=== PATIENT | male | born 1960 | race Caucasian/White ===

== ENCOUNTER 2016-11-25 16:23 | Inpatient (IN) | payer OTHER ==
[~2016-11-25] VITALS: Ht 185.4 cm; Wt 125.5 kg
[~2016-11-25 16:23] MED LIST: CLOP75TA19 PO; FAMO-137 PO; FENO160T9 PO; FLUO40CA40 PO; GABA-215 PO; GLIP5TAB11 PO; HYDR-4246 PO; IBUP-1547 PO; LISI30TA36 PO; ONDA4TAB7 PO; SAXA1TBM2 PO
--- OUTSIDE RECORDS SUMMARY | 2016-11-25 16:27 | XMS REPORT | Referral Summary ---
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 Discharge Diagnosis: Benign essential hypertension (disorder) Discharge Disposition: 01-Home or Self Care Attending Physician: Herrera Martinez MD Admitting Physician: Herrera Martinez MD Vital Signs Most recent to 1 oldest [Reference Range]: Blood Pressure 154/94 mmHg [90-140/60-90 mmHg] *HI* (07/31/16 2:27 PM) Problem List Condition Effective Dates Status Health Status Informant Active Active smoker(Confirmed) Benign essential Resolved hypertension (disorder)(Confirmed ) Benign Active hypertension(Confirm ed) BPH with urinary Active obstruction(Confirme d) CAD (coronary < 04/12/14 Resolved atherosclerotic disease)(Confirmed)1 Recurrent Active carbuncles(Confirmed )2 DM complicaitons - 2009 Active microalbuminuria, neuropathy, PVD(Confirmed) Coronary Active arteriosclerosis (disorder)(Confirmed ) Depression(Confirmed Active ) Diabetes, type 2 w/ Active perf circ disc(Confirmed)3 Diabetes, type 2, Active with neuro manif(Confirmed)4 Diabetes, type 2, Active with renal manifestations(Confi rmed)5 Diabetic renal Active disease (disorder)(Confirmed ) Mixed Active dyslipidemia(Confirm ed) Excessive weight Active gain(Confirmed) GERD(Confirmed) Active Hepatitis C carrier Resolved (finding)(Confirmed) Hepatitis C Active carrier(Confirmed) Hyperlipidemia(Confi < 04/12/14 Resolved rmed) PHx IVDA(Confirmed)6 Active Irritable bowel Active disease(Confirmed) Mixed hyperlipidemia Resolved (disorder)(Confirmed ) Obesity(Confirmed) Active Osteoarthritis(Confi Active rmed) Patient post Active percutaneous transluminal coronary angioplasty (finding)(Confirmed) Peripheral Active circulatory disorder associated with diabetes mellitus (disorder)(Confirmed ) Shoulder Active pain(Confirmed) Sleep Active apnea(Confirmed)7 Stented coronary Active artery(Confirmed) 1See NextGen. 2See conversion document. 3see NextGen. 4see NextGen. 5see NextGen. 6ages 20-23. See NextGen. 7on CPAP. See conversion document. Allergies, Adverse Reactions, Alerts Substance Reaction Severity Status lovastatin myalgias Active niacin severe flushing Active sulfamethoxazole Active Medications amoxicillin 875 mg oral tablet 875 mg 1 tabs, Oral, BID, X 10 days, # 20 tabs, 1 Refill(s), Pharmacy: [facility] #[id number], 1 tabs Oral BID,x10 days Start Date: 07/31/16 Stop Date: 08/20/16 Status: Ordered clopidogrel 75 mg oral tablet See Instructions, TAKE ONE TABLET BY MOUTH DAILY, # 90 tabs, eRx: [facility] #[id number], TAKE ONE TABLET BY MOUTH DAILY Start Date: 07/17/16 Status: Ordered FLUoxetine 40 mg oral capsule See Instructions, TAKE ONE CAPSULE BY MOUTH DAILY, # 90 caps, 1 Refill(s), eRx: [facility] #[id number], TAKE ONE CAPSULE BY MOUTH DAILY Start Date: 06/12/16 Status: Ordered gabapentin 300 mg oral capsule See Instructions, TAKE ONE CAPSULE BY MOUTH THREE TIMES A DAY, # 270 caps, 3 Refill(s), Pharmacy: [facility] #[id number], TAKE ONE CAPSULE BY MOUTH THREE TIMES A DAY Start Date: 08/17/15 Status: Ordered indomethacin 50 mg oral capsule See Instructions, TAKE ONE CAPSULE BY MOUTH TWICE A DAY, # 180 caps, 1 Refill(s) , Pharmacy: [facility] #[id number], TAKE ONE CAPSULE BY MOUTH TWICE A DAY Start Date: 07/31/16 Status: Ordered Kombiglyze XR 2.5 mg-1000 mg oral tablet, extended release See Instructions, TAKE ONE TABLET BY MOUTH EVERY EVENING, # 90 tabs, 0 Refill(s) , Pharmacy: [facility] #[id number] Start Date: 04/10/16 Status: Ordered lisinopril 30 mg oral tablet See Instructions, TAKE TWO TABLETS BY MOUTH DAILY, # 90 tabs, 1 Refill(s), Pharmacy: [facility] #[id number] Start Date: 05/18/16 Status: Ordered Miscellaneous DME DME Item One touch Ultra Blue test strips Use to test blood sugar 3x daily DX : E11.21, See Instructions, # 2 boxes, 3 Refill(s), Pharmacy: [facility] # [id number], One touch Ultra Blue test strips; Use to test blood sugar 3x daily; DX: E11.21, Supply Start Date: 10/11/15 Status: Ordered omeprazole 20 mg oral delayed release tablet mg tabs, Oral, Daily, 0 Refill(s) Start Date: 02/14/15 Status: Ordered Percocet 7.5/325 oral tablet 1 tabs, Oral, TID, Must last 30 days. May fill 07/18/16, # 90 tabs, 0 Refill(s) Start Date: 07/18/16 Status: Ordered simvastatin 20 mg oral tablet See Instructions, TAKE ONE TABLET EVERY SATURDAY, SATURDAY AND SATURDAY, # 39 tabs , 1 Refill(s), Pharmacy: [facility] #[id number], TAKE ONE TABLET EVERY SATURDAY , SATURDAY AND SATURDAY Start Date: 07/31/16 Status: Ordered tamsulosin 0.4 mg oral capsule 0.4 mg 1 caps, Oral, Daily, # 90 caps, 1 Refill(s), Pharmacy: [facility] # [id number], 1 caps Oral Daily Start Date: 05/27/15 Status: Ordered Results Hematology Most recent to 1 oldest [Reference Range]: WBC [4.8-10.8 7.1 10*3/uL 10*3/uL] (07/31/16 2:55 PM) RBC [4.60-6.20] 4.19 *LOW* (07/31/16 2:55 PM) Hgb [14.0-18.0 12.5 gm/dL gm/dL] *LOW* (07/31/16 2:55 PM) Hct [42.0-52.0 %] 36.3 % *LOW* (07/31/16 2:55 PM) MCV [82.0-99.0 fL] 86.6 fL (07/31/16 2:55 PM) MCH [27.0-32.0 pg] 29.8 pg (07/31/16 2:55 PM) MCHC [32.0-36.0 34.4 gm/dL gm/dL] (07/31/16 2:55 PM) RDW [11.5-14.5 %] 12.3 % (07/31/16 2:55 PM) Platelet [150-400 211 10*3/uL 10*3/uL] (07/31/16 2:55 PM) MPV [8.8-14.8 fL] 10.9 fL (07/31/16 2:55 PM) Immature 0.6 % Granulocytes (07/31/16 2:55 PM) [0.0-1.0 %] Neutrophils [51-75 67 % %] (07/31/16 2:55 PM) Lymphocytes [20-46 24 % %] (07/31/16 2:55 PM) Monocytes [4-11 %] 6 % (07/31/16 2:55 PM) Eosinophils [0-4 %] 1 % (07/31/16 2:55 PM) Basophils [0-2 %] 0 % (07/31/16 2:55 PM) Neutro Absolute 4.80 [1.90-7.00] (07/31/16 2:55 PM) Lymph Absolute 1.73 [0.80-3.30] (07/31/16 2:55 PM) [place] Absolute 0.45 [0.30-1.00] (07/31/16 2:55 PM) Eos Absolute 0.10 [0.00-0.50] (07/31/16 2:55 PM) Baso Absolute 0.02 [0.00-0.20] (07/31/16 2:55 PM) Chemistry Most recent to 1 oldest [Reference Range]: Sodium Lvl [135-144 136 mEq/L mEq/L] (07/31/16 2:55 PM) Potassium Lvl 4.3 mEq/L [3.5-5.2 mEq/L] (07/31/16 2:55 PM) Chloride [99-111 101 mEq/L mEq/L] (07/31/16 2:55 PM) CO2 [23-31 mEq/L] 26 mEq/L (07/31/16 2:55 PM) AGAP [3-20] 9 (07/31/16 2:55 PM) BUN [8-26 mg/dL] 14 mg/dL (07/31/16 2:55 PM) Glucose Lvl [70-99 170 mg/dL mg/dL] *HI* (07/31/16 2:55 PM) Creatinine Lvl 0.90 mg/dL [0.72-1.25 mg/dL] (07/31/16 2:55 PM) eGFR [>60 mL/min] >60 mL/min 1 (07/31/16 2:55 PM) Calcium Lvl 9.4 mg/dL [8.9-10.5 mg/dL] (07/31/16 2:55 PM) PSA (wihout Reflex 2.8 ng/mL 2 Free) [0.0-3.5 (07/31/16 2:55 PM) ng/mL] Hgb A1c [4.1-5.6 %] 6.6 % *HI* (07/31/16 2:55 PM) eAvg Glucose 142.7 mg/dL (07/31/16 2:55 PM) 1Result Comment: Multiply eGFR results by 1.21 for race. 2Result Comment: AUA PSA Best Practice Guidelines: Age-Adjusted PSA Values by Ethnic Group Age Range Asians - Caucasians Americans 40-49 0-2.0 0-2.0 0-2.5 50-59 0-3.0 0-4.0 0-3.5 60-69 0-4.0 0-4.5 0-4.5 70-79 0-5.0 0-5.5 0-6.5 Immunizations Given and Recorded Vaccine Date Status Refusal Reason hepatitis A-hepatitis B vaccine 06/22/13 Given hepatitis A-hepatitis B vaccine 10/29/11 Given hepatitis A-hepatitis B vaccine 08/11/09 Given influenza virus vaccine, inactivated 04/14/14 Recorded influenza virus vaccine, live 08/11/12 Given tetanus/diphtheria/pertussis, acel(Tdap) 06/03/09 Recorded Procedures Procedure Date Related Diagnosis Body Site Collection of venous blood by venipuncture 1/17/17 Diabetic foot examination1 07/07/14 Colon cancer screening2 10/17/12 Colonoscope 10/17/12 Angioplasty3 02/2009 Liver biopsy sample 07/15/06 Liver bx 2006 Diabetic eye exam4 Tonsillectomy 1NO CONCERNS 2Colonoscopy, diverticulosis, tubular adenoma, hyperplastic polyp. Repeat in 5 years. See NextGen. 3multiple caths, [address] Moreno. See conversion document. 4no diabetic retinopathy-saw Shalini Graham Social History Social History Type Response Smoking Status Former smoker; Type: Cigarettes; Date Last Use: 07/14/16. Assessment and Plan Extracted from: Title: Ambulatory Patient Education Author: Herrera Martinez MD Date: Family Medicine Benign Prostatic Hypertrophy The prostate gland is part of the reproductive system of men. A normal prostate is about the size and shape of a walnut. The prostate gland produces a fluid that is mixed with sperm to make semen. This gland surrounds the urethra and is located in front of the rectum and just below the bladder. The bladder is where urine is stored. The urethra is the tube through which urine passes from the bladder to get out of the body. The prostate grows as a man ages. An enlarged prostate not caused by cancer is called benign prostatic hypertrophy (BPH). An enlarged prostate can press on the urethra. This can make it harder to pass urine. In the early stages of enlargement, the bladder can get by with a narrowed urethra by forcing the urine through. If the problem gets worse, medical or surgical treatment may be required. This condition should be followed by your health care provider. The accumulation of urine in the bladder can cause infection. Back pressure and infection can progress to bladder damage and kidney (renal) failure. If needed, your health care provider may refer you to a specialist in kidney and prostate disease (urologist). CAUSES BPH is a common health problem in men older than 50 years. This condition is a normal part of aging. However, not all men will develop problems from this condition. If the enlargement grows away from the urethra, then there will not be any compression of the urethra and resistance to urine flow.If the growth is toward the urethra and compresses it, you will experience difficulty urinating. SYMPTOMS Not able to completely empty your bladder. Getting up often during the night to urinate. Need to urinate frequently during the day. Difficultly starting urine flow. Decrease in size and strength of your urine stream. Dribbling after urination. Pain on urination (more common with infection). Inability to pass urine. This needs immediate treatment. The development of a urinary tract infection. DIAGNOSIS These tests will help your health care provider understand your problem: A thorough history and physical examination. A urination history, with the number of times you urinate, the amounts of urine, the strength of the urine stream, and the feeling of emptiness or fullness after urinating. A postvoid bladder scan that measures any amount of urine that may remain in your bladder after you finish urinating. Digital rectal exam. In a rectal exam, your health care provider checks your prostate by putting a gloved, lubricated finger into your rectum to feel the back of your prostate gland. This exam detects the size of your gland and abnormal lumps or growths. Exam of your urine (urinalysis). Prostate specific antigen (PSA) screening. This is a blood test used to screen for prostate cancer. Rectal ultrasonography. This test uses sound waves to electronically produce a picture of your prostate gland. TREATMENT Once symptoms begin, your health care provider will monitor your condition. Of the men with this condition, one third will have symptoms that stabilize, one third will have symptoms that improve, and one third will have symptoms that progress in the first year. Mild symptoms may not need treatment. Simple observation and yearly exams may be all that is required. Medicines and surgery are options for more severe problems. Your health care provider can help you make an informed decision for what is best. Two classes of medicines are available for relief of prostate symptoms: Medicines that shrink the prostate. This helps relieve symptoms. These medicines take time to work, and it may be months before any improvement is seen. Uncommon side effects include problems with sexual function. Medicines to relax the muscle of the prostate. This also relieves the obstruction by reducing any compression on the urethra.This group of medicines work much faster than those that reduce the size of the prostate gland. Usually, one can experience improvement in days to weeks.. Side effects can include dizziness, fatigue, lightheadedness, and retrograde ejaculation (diminished volume of ejaculate). Several types of surgical treatments are available for relief of prostate symptoms: Transurethral resection of the prostate (TURP)In this treatment, an instrument is inserted through opening at the tip of the penis. It is used to cut away pieces of the inner core of the prostate. The pieces are removed through the same opening of the penis. This removes the obstruction and helps get rid of the symptoms. Transurethral incision (TUIP)In this procedure, small cuts are made in the prostate. This lessens the prostates pressure on the urethra. Transurethral microwave thermotherapy (TUMT)This procedure uses microwaves to create heat. The heat destroys and removes a small amount of prostate tissue. Transurethral needle ablation (TUNA)This is a procedure that uses radio frequencies to do the same as TUMT. Interstitial laser coagulation (ILC)This is a procedure that uses a laser to do the same as TUMT and TUNA. Transurethral electrovaporization (TUVP)This is a procedure that uses electrodes to do the same as the procedures listed above. SEEK MEDICAL CARE IF: You develop a fever. There is unexplained back pain. Symptoms are not helped by medicines prescribed. You develop side effects from the medicine you are taking. Your urine becomes very dark or has a bad smell. Your lower abdomen becomes distended and you have difficulty passing your urine. SEEK IMMEDIATE MEDICAL CARE IF: You are suddenly unable to urinate. This is an emergency. You should be seen immediately. There are large amounts of blood or clots in the urine. Your urinary problems become unmanageable. You develop lightheadedness, severe dizziness, or you feel faint. You develop moderate to severe low back or flank pain. You develop chills or fever. This information is not intended to replace advice given to you by your health care provider. Make sure you discuss any questions you have with your health care provider. Document Released: 07/01/2006 Document Revised: 07/06/2014 Document Reviewed: [employer] Interactive Patient Education 2016 [employer] Health and Wellness Diabetes and Standards of Medical Care Diabetes is complicated. You may find that your diabetes team includes a dietitian, nurse, simulation developer, eye doctor, and more. To help everyone know what is going on and to help you get the care you deserve, the following schedule of care was developed to help keep you on track. Below are the tests, exams, vaccines, medicines, education, and plans you will need. HbA1c test This test shows how well you have controlled your glucose over the past 23 months. It is used to see if your diabetes management plan needs to be adjusted. It is performed at least 2 times a year if you are meeting treatment goals. It is performed 4 times a year if therapy has changed or if you are not meeting treatment goals. Blood pressure test This test is performed at every routine medical visit. The goal is less than 140/90 mm Hg for most people, but 130/80 mm Hg in some cases. Ask your health care provider about your goal. Dental exam Follow up with the dentist regularly. Eye exam If you are diagnosed with type 1 diabetes as a child, get an exam upon reaching the age of 10 years or older and having had diabetes for 35 years. Yearly eye exams are recommended after that initial eye exam. If you are diagnosed with type 1 diabetes as an adult, get an exam within 5 years of diagnosis and then yearly. If you are diagnosed with type 2 diabetes, get an exam as soon as possible after the diagnosis and then yearly. Foot care exam Visual foot exams are performed at every routine medical visit. The exams check for cuts, injuries, or other problems with the feet. You should have a complete foot exam performed every year. This exam includes an inspection of the structure and skin of your feet, a check of the pulses in your feet, and a check of the sensation in your feet. Type 1 diabetes: The first exam is performed 5 years after diagnosis. Type 2 diabetes: The first exam is performed at the time of diagnosis. Check your feet nightly for cuts, injuries, or other problems with your feet. Tell your health care provider if anything is not healing. Kidney function test (urine microalbumin) This test is performed once a year. Type 1 diabetes: The first test is performed 5 years after diagnosis. Type 2 diabetes: The first test is performed at the time of diagnosis. A serum creatinine and estimated glomerular filtration rate (eGFR) test is done once a year to assess the level of chronic kidney disease (CKD), if present. Lipid profile (cholesterol, HDL, LDL, triglycerides) Performed every 5 years for most people. The goal for LDL is less than 100 mg/dL. If you are at high risk, the goal is less than 70 mg/dL. The goal for HDL is 40 mg/dL50 mg/dL for men and 50 mg/dL60 mg/dL for women. An HDL cholesterol of 60 mg/dL or higher gives some protection against heart disease. The goal for triglycerides is less than 150 mg/dL. Immunizations The flu (influenza) vaccine is recommended yearly for every person 6 months of age or older who has diabetes. The pneumonia (pneumococcal) vaccine is recommended for every person 2 years of age or older who has diabetes. Adults 65 years of age or older may receive the pneumonia vaccine as a series of two separate shots. The hepatitis B vaccine is recommended for adults shortly after they have been diagnosed with diabetes. The Tdap (tetanus, diphtheria, and pertussis) vaccine should be given: According to normal childhood vaccination schedules, for children. Every 10 years, for adults who have diabetes. Diabetes self-management education Education is recommended at diagnosis and ongoing as needed. Treatment plan Your treatment plan is reviewed at every medical visit. This information is not intended to replace advice given to you by your health care provider. Make sure you discuss any questions you have with your health care provider. Document Released: 04/28/2010 Document Revised: 07/22/2015 Document Reviewed: [employer] Interactive Patient Education 2016 [employer] Preventive Medicine Diabetes and Foot Care Diabetes may cause you to have problems because of poor blood supply ( circulation) to your feet and legs. This may cause the skin on your feet to become thinner, break easier, and heal more slowly. Your skin may become dry, and the skin may peel and crack. You may also have nerve damage in your legs and feet causing decreased feeling in them. You may not notice minor injuries to your feet that could lead to infections or more serious problems. Taking care of your feet is one of the most important things you can do for yourself. HOME CARE INSTRUCTIONS Wear shoes at all times, even in the house. Do not go barefoot. Bare feet are easily injured. Check your feet daily for blisters, cuts, and redness. If you cannot see the bottom of your feet, use a mirror or ask someone for help. Wash your feet with warm water (do not use hot water) and mild soap. Then pat your feet and the areas between your toes until they are completely dry. Do not soak your feet as this can dry your skin. Apply a moisturizing lotion or petroleum jelly (that does not contain alcohol and is unscented) to the skin on your feet and to dry, brittle toenails. Do not apply lotion between your toes. Trim your toenails straight across. Do not dig under them or around the cuticle. File the edges of your nails with an emery board or nail file. Do not cut corns or calluses or try to remove them with medicine. Wear clean socks or stockings every day. Make sure they are not too tight. Do not wear knee-high stockings since they may decrease blood flow to your legs. Wear shoes that fit properly and have enough cushioning. To break in new shoes, wear them for just a few hours a day. This prevents you from injuring your feet. Always look in your shoes before you put them on to be sure there are no objects inside. Do not cross your legs. This may decrease the blood flow to your feet. If you find a minor scrape, cut, or break in the skin on your feet, keep it and the skin around it clean and dry. These areas may be cleansed with mild soap and water. Do not cleanse the area with peroxide, alcohol, or iodine. When you remove an adhesive bandage, be sure not to damage the skin around it. If you have a wound, look at it several times a day to make sure it is healing. Do not use heating pads or hot water bottles. They may burn your skin. If you have lost feeling in your feet or legs, you may not know it is happening until it is too late. Make sure your health care provider performs a complete foot exam at least annually or more often if you have foot problems. Report any cuts, sores, or bruises to your health care provider immediately. SEEK MEDICAL CARE IF: You have an injury that is not healing. You have cuts or breaks in the skin. You have an ingrown nail. You notice redness on your legs or feet. You feel burning or tingling in your legs or feet. You have pain or cramps in your legs and feet. Your legs or feet are numb. Your feet always feel cold. SEEK IMMEDIATE MEDICAL CARE IF: There is increasing redness, swelling, or pain in or around a wound. There is a red line that goes up your leg. Pus is coming from a wound. You develop a fever or as directed by your health care provider. You notice a bad smell coming from an ulcer or wound. This information is not intended to replace advice given to you by your health care provider. Make sure you discuss any questions you have with your health care provider. Document Released: 06/28/2001 Document Revised: 03/03/2014 Document Reviewed: [employer] Interactive Patient Education 2016 [employer] No follow up information was provided. Extracted from: Title: Office Visit Note Author: Herrera Martinez MD Date: 07/31/16 Assessment/Plan Benign essential hypertension (disorder) No change in treatment and will get lab today. Ordered: Basic Metabolic Panel BPH with urinary obstruction Lab for a PSA Ordered: Prostate Specific Antigen Diabetes, type 2, with renal manifestations Lab for a HgA1C Ordered: Hemoglobin A1c Follow up in 3 months.
--- OUTSIDE RECORDS SUMMARY | 2016-11-25 16:27 | XMS REPORT | Continuity of Care Document ---
Author Author [facility] Organization [facility] Address Unknown Phone Unavailable Support Name Relationship Address Phone GARIMA LUNA MD Caregiver [address] [place] [phone] JAVIER MATT MD Caregiver [address] [place] [address] GARIMA PRATT Next Of Kin [address] [place] [address] [id number] Insurance Providers Payer Name Policy Number Subscriber Name Relationship Benefit Management Pcn [id number] ChaparroRenny birminghamy 01 Spouse Problems Medical Problems Problem Onset Date Status Right shoulder strain Unknown Active Right shoulder strain Unknown Active Medications Medication Dose Route Sig Days/Qty Instructions Order Date Discontinued Date Status Fluoxetine HCl 40 Mg PO DAILY 01/01/11 Active Clopidogrel Bisulfate 75 Mg PO DAILY 01/01/11 Active Niacin 500 Mg PO TWICE A DAY 01/01/11 10/16/12 Discontinued Lovastatin 40 Mg PO DAILY 01/01/11 02/28/14 Discontinued Glimepiride 1 Mg PO DAILY 01/01/11 10/16/12 Discontinued Metformin Hcl 1,000 Mg PO TWICE A DAY 01/01/11 02/28/14 Discontinued Lisinopril 60 Mg PO DAILY 01/01/11 Active Fenofibrate,Micronized 54 Mg PO DAILY 01/01/11 10/16/12 Discontinued Indomethacin 50 Mg PO DAILY 01/01/11 10/16/12 Discontinued Omeprazole 20 Mg PO DAILY 01/01/11 Active Metronidazole 500 Mg PO THREE TIMES A DAY 01/01/11 10/16/12 Discontinued Metformin Hcl 120 Qty 10/16/12 10/16/12 Discontinued Saxagliptin Hcl/Metformin Hcl TWICE A DAY 10/16/12 10/17/12 Discontinued Fenofibrate,Micronized 160 Mg PO DAILY 10/16/12 Active Gabapentin DAILY 10/16/12 Active Multivitamins W-Minerals/Lut 1 Tab PO DAILY 10/16/12 Active Ibuprofen 1 Tab PO Every 8 Hours 7 Days 02/28/14 Active Cyclobenzaprine HCl 1 Tab PO THREE TIMES A DAY For PAIN &/OR SPASM 30 Qty 02/28/14 Active Hydrocodone/Acetaminophen 1-2 Tab PO Every 6 Hours PRN PAIN 30 Qty Active Social History Social History Problem Response Recorded Date/Time Smoking Status Unknown if ever smoked 02/28/2014 8:12pm Chewing Tobacco Status No 10/16/2012 3:36pm Hx Substance Use No 02/28/2014 8:12pm Hx Alcohol Use No 02/28/2014 8:12pm Has the pt used tobacco in the last 12 months Yes 10/16/2012 3:36pm Query Response Start Date Stop Date Smoking Status Current every day smoker Hospital Discharge Instructions No hospital discharge instructions. Plan of Care No plan of care. Functional Status Query Response Date Recorded Physical Hygiene Self February 28, 2014 8:12pm Disabilities None February 28, 2014 8:12pm Devices Used None February 28, 2014 8:12pm Dressing Self February 28, 2014 8:12pm Ambulation Self February 28, 2014 8:12pm Diet Self February 28, 2014 8:12pm Mental Status Alert February 28, 2014 8:50pm Disabilities None February 28, 2014 8:12pm Devices Used None February 28, 2014 8:12pm Physical Hygiene Self February 28, 2014 8:12pm Dressing Self February 28, 2014 8:12pm Ambulation Self February 28, 2014 8:12pm Diet Self February 28, 2014 8:12pm Allergies, Adverse Reactions, Alerts Allergen Type Severity Reaction Status Last Updated Sulfa (Sulfonamide Antibiotics) Allergy Unknown HIVES Active 01/01/11 Niacin Allergy Unknown SEVERE FLUSHING Active 10/16/12 Saxagliptin Allergy Unknown LEG CRAMPS Active 10/16/12 Immunizations Name Given Type Hx Influenza Vaccination Y FALL 2011 Historical Hx Pneumococcal Vaccination No Historical Hx Influenza Vaccination Y FALL 2011 Historical Vital Signs Acute Vital Signs Vital Response Date/Time Temperature (Fahrenheit) 96.8 deg F (96.8 - 99.1) Temperature (Calculated Celsius) 36.29121 degrees C (36.0 - 37.3) Pulse Rate (adult) 78 bpm (60 - 100) Respiratory Rate 20 breaths/min (10 - 20) O2 Sat by Pulse Oximetry 95 % (90 - 100) Blood Pressure 137/71 mm Hg Height 6 ft 1 in Weight 314 lb Body Mass Index 41.0 kg/m^2 Results Test Source Date Result Interp. Ref. Range Comments Alanine Aminotransferase (ALT/SGPT) June 30, 2013 7:05pm 41 U/L N 21 -72 Albumin June 30, 2013 7:05pm 4.6 G/DL N 3.5-5.0 Albumin/Globulin Ratio June 30, 2013 7:05pm 1.4 RATIO N 1.1-2.2 Alkaline Phosphatase June 30, 2013 7:05pm 54 U/L N 38-126 Anion Gap June 30, 2013 7:05pm 17 MEQ/L H 5-15 Aspartate Amino Transf (AST/SGOT) June 30, 2013 7:05pm 42 U/L N 17- 59 B-Type Natriuretic Peptide January 01, 2011 12:00am 18 PG/ML N 15-100 BUN/Creatinine Ratio June 30, 2013 7:05pm 18 RATIO N 6-26 Band Neutrophils # June 30, 2013 7:05pm 0.3 T/MM3 - Band Neutrophils % June 30, 2013 7:05pm 4.0 % N 0-6 Basophils # (Manual) June 30, 2013 7:05pm 0.1 T/MM3 N 0-0.2 Basophils % (Manual) June 30, 2013 7:05pm 1.0 % N 0-2 Blood Urea Nitrogen June 30, 2013 7:05pm 20.0 MG/DL N 9-20 Calcium Level June 30, 2013 7:05pm 10.8 MG/DL H 8.4-10.2 Calculated Osmolality June 30, 2013 7:05pm 282 MOSM/KG H 261-280 Carbon Dioxide Level June 30, 2013 7:05pm 26 MEQ/L N 22-30 Chloride Level June 30, 2013 7:05pm 102 MEQ/L N 98-107 Conjugated Bilirubin January 01, 2011 12:57pm 0.00 MG/DL N 0.00-0.30 Creatinine June 30, 2013 7:05pm 1.1 MG/DL N 0.8-1.5 Eosinophils # (Manual) June 30, 2013 7:05pm 0.2 T/MM3 N 0-0.5 Eosinophils % (Manual) June 30, 2013 7:05pm 2.0 % N 0-4 Globulin June 30, 2013 7:05pm 3.4 G/DL N 2.4-3.6 Glucose Level June 30, 2013 7:05pm 106 MG/DL N 75-110 Hematocrit June 30, 2013 7:05pm 43.6 % N 41-53 Hemoglobin June 30, 2013 7:05pm 15.3 GM/DL N 13.5-17.5 Lymphocytes # (Manual) June 30, 2013 7:05pm 3.1 T/MM3 N 1-4.8 Lymphocytes % (Manual) June 30, 2013 7:05pm 39.0 % N 23-45 Mean Corpuscular Hemoglobin June 30, 2013 7:05pm 31.5 UUG N 26-34 Mean Corpuscular Hemoglobin Concent June 30, 2013 7:05pm 35.1 GM/DL N 31-37 Mean Corpuscular Volume June 30, 2013 7:05pm 89.9 UM3 N 80-100 Mean Platelet Volume June 30, 2013 7:05pm 10.9 UM3 N 9.4-12.4 Monocytes # (Manual) June 30, 2013 7:05pm 0.5 T/MM3 N 0-0.8 Monocytes % (Manual) June 30, 2013 7:05pm 6.0 % N 0-9.0 Neutrophils # (Manual) June 30, 2013 7:05pm 3.8 T/MM3 N 1.8-7.7 Neutrophils % (Manual) June 30, 2013 7:05pm 48.0 % N 33-66 Platelet Count June 30, 2013 7:05pm 194 T/MM3 N 130-400 Potassium Level June 30, 2013 7:05pm 4.5 MEQ/L N 3.6-5 RDW Standard Deviation June 30, 2013 7:05pm 42.1 FL N 36.9-50.2 Red Blood Count June 30, 2013 7:05pm 4.85 M/MM3 N 4.50-5.90 Sodium Level June 30, 2013 7:05pm 145 MEQ/L H 134-144 Total Bilirubin June 30, 2013 7:05pm 0.40 MG/DL N 0.20-1.30 Total Protein June 30, 2013 7:05pm 8.0 G/DL N 6.3-8.2 Unconjugated Bilirubin January 01, 2011 12:57pm 1.20 MG/DL H 0.00-1.10 Urine Amorphous Urates June 30, 2013 6:25pm Moderate - Urine Bacteria June 30, 2013 6:25pm 3+ H - Urine Bilirubin June 30, 2013 6:25pm Negative - Urine Blood June 30, 2013 6:25pm Negative - Urine Collection Type June 30, 2013 6:25pm Voided-not cc-midstr - Urine Color June 30, 2013 6:25pm Yellow - Urine Culture Indicated June 30, 2013 6:25pm Cult reflexed &setup - Urine Glucose (UA) June 30, 2013 6:25pm Negative - Urine Ketones June 30, 2013 6:25pm Negative - Urine Leukocyte Esterase June 30, 2013 6:25pm 1+ H - Urine Mucus January 01, 2011 12:14pm Present - Has specimen been collected/obtained? Y Urine Nitrite June 30, 2013 6:25pm Positive H - Urine Protein June 30, 2013 6:25pm Trace H - Urine RBC June 30, 2013 6:25pm None seen /HPF - Urine Specific [place] June 30, 2013 6:25pm 1.010 L - Urine Squamous Epithelial Cells June 30, 2013 6:25pm 5-10 - Urine Turbidity June 30, 2013 6:25pm Slt cldy - Urine Urobilinogen June 30, 2013 6:25pm Normal EU/DL - Urine WBC June 30, 2013 6:25pm 50-200 /HPF H - Urine pH June 30, 2013 6:25pm 7.0 - White Blood Count June 30, 2013 7:05pm 8.0 T/MM3 N 4.5-11.0 Glucometer October 17, 2012 8:26am 118 mg/dL H 75-110 Lab Scanned Report June 30, 2013 8:37pm LAB TEST FORM REQUEST [id number] - Glomerular Filtration Rate Calc June 30, 2013 7:05pm 70 - Blood Culture Blood January 01, 2011 2:30pm NO GROWTH AFTER 5 DAYS Throat Culture Throat June 30, 2013 6:25pm Urine Culture Urine, Voided-Not Cc-Midstream June 30, 2013 7:49pm Staphylococcus Lugdunensis Gram Stain Groin June 03, 2009 8:00pm Procedures No known history of procedures. Encounters Encounter Location Date/Time Departed Emergency [facility] 02/28/14 7:34pm Recent Diagnosis
--- OUTSIDE RECORDS SUMMARY | 2016-11-25 16:27 | XMS REPORT | Continuity of Care Document ---
Author Author [facility] Organization [facility] Address Unknown Phone Unavailable Allergies Active Description Code Type Severity Reaction Onset Reported/Identified Relationship to Patient Clinical Status Yes lovastatin NKMA N/A myalgias 11/12/2013 Yes niacin NKMA N/A severe flushing 11/12/2013 Yes sulfamethoxazole NKMA N/A N/A 11/12/2013 Medications Problems Procedures Results Test Result Range AMADOU Screen - 11/05/16 11:55 AMADOU Screen Negative NA Negative Testosterone, Total, Bio, Free - 11/05/16 11:55 Testosterone, Total 314 ng/dL 240-950 Encounters ACCT No. Visit Date/Time Discharge Status Pt. Type Provider Facility Loc./Unit Complaint [id number] 06/22/2013 08:29:00 06/22/2013 23 :59:59 CLS Outpatient
--- OUTSIDE RECORDS SUMMARY | 2016-11-25 16:28 | XMS REPORT | Continuity of Care Document ---
Author Author [facility] Organization [facility] Address Unknown Phone Unavailable Support Name Relationship Address Phone ARMANI WEINER MD Caregiver [facility] [address] [place] [address] ALEJANDRO LUNA MD Caregiver [address] [place] [address] [address], [place] [phone] ALEJANDRO PRATT Next Of Kin [address] [place] [id number] Insurance Providers Payer Name Policy Number Subscriber Name Relationship Benefit Management Pcn [id number] Alejandro Pratt 01 Spouse Advance Directives Directive Response Recorded Date/Time Ordered Resuscitation Status Full Code 06/09/14 5:04pm Problems Medical Problems Problem Onset Date Status [...] For PAIN &/OR SPASM 30 Qty 02/28/14 06/09/14 Discontinued Hydrocodone/Acetaminophen 1-2 Tab PO Every 6 Hours PRN PAIN 30 Qty Active Glipizide 2 Tab PO TWICE A DAY 06/09/14 Active Ciprofloxacin HCl 500 Mg PO EVERY 12 HOURS 06/09/14 Active Social History Social History Problem Response Recorded Date/Time Smoking Status Current every day smoker 06/09/2014 10:46am Chewing Tobacco Status No 10/16/2012 3:36pm Hx Substance Use No 06/09/2014 10:46am Hx Alcohol Use No 06/09/2014 10:46am Has the pt used tobacco in the last 12 months Yes 06/09/2014 10:46am Query Response Start Date Stop Date Smoking Status Current every day smoker Hospital Discharge Instructions No hospital discharge instructions. Plan of Care No plan of care. Functional Status Query Response Date Recorded Physical Hygiene Self February 28, 2014 8:12pm Physical Hygiene Self February 28, 2014 8:12pm Allergies, Adverse Reactions, Alerts Allergen Type Severity Reaction Status Last Updated Sulfa (Sulfonamide Antibiotics) Allergy Unknown HIVES Active 01/01/11 Niacin Allergy Unknown SEVERE FLUSHING Active 10/16/12 Saxagliptin Allergy Unknown LEG CRAMPS Active 10/16/12 Immunizations Name Given Type Hx Influenza Vaccination Y APR 2014 Historical Hx Pneumococcal Vaccination No Historical Hx Influenza Vaccination Y APR 2014 Historical Vital Signs Acute Vital Signs Vital Response Date/Time Temperature (Fahrenheit) 97.6 deg F (96.8 - 99.1) Temperature (Calculated Celsius) 36.44949 degrees C (36.0 - 37.3) Temperature Source Axillary Pulse Rate (adult) 96 bpm (60 - 100) Respiratory Rate 16 breaths/min (10 - 20) O2 Sat by Pulse Oximetry 92 % (90 - 100) Oxygen Delivery Method Room Air Blood Pressure 126/58 mm Hg Blood Pressure Source Automatic Cuff Height 6 ft 0 in Weight 315 lb Body Mass Index 42.0 kg/m^2 Results Test Source Date Result Interp. Ref. Range Comments Alanine Aminotransferase (ALT/SGPT) June 14, 2014 10:43am 38 U/L N 21-72 COMMENT PRE-OP WILL CALL Albumin June 14, 2014 10:43am 4.4 G/DL N 3.5-5.0 COMMENT PRE-OP WILL CALL Albumin/Globulin Ratio June 14, 2014 10:43am 1.5 RATIO N 1.1-2.2 COMMENT PRE-OP WILL CALL Alkaline Phosphatase June 14, 2014 10:43am 77 U/L N 38-126 COMMENT PRE-OP WILL CALL Anion Gap June 14, 2014 10:43am 13 MEQ/L N 5-15 COMMENT PRE-OP WILL CALL Aspartate Amino Transf (AST/SGOT) June 14, 2014 10:43am 27 U/L N 17- 59 COMMENT PRE-OP WILL CALL B-Type Natriuretic Peptide January 01, 2011 12:00am 18 PG/ML N 15-100 BUN/Creatinine Ratio June 14, 2014 10:43am 18 RATIO N 6-26 COMMENT PRE-OP WILL CALL Band Neutrophils # June 30, 2013 7:05pm 0.3 T/MM3 - Band Neutrophils % June 30, 2013 7:05pm 4.0 % N 0-6 Basophils # (Manual) June 30, 2013 7:05pm 0.1 T/MM3 N 0-0.2 Basophils % (Manual) June 30, 2013 7:05pm 1.0 % N 0-2 Blood Urea Nitrogen June 14, 2014 10:43am 14.0 MG/DL N 9-20 COMMENT PRE-OP WILL CALL Calcium Level June 14, 2014 10:43am 10.1 MG/DL N 8.4-10.2 COMMENT PRE-OP WILL CALL Calculated Osmolality June 14, 2014 10:43am 279 MOSM/KG N 261-280 COMMENT PRE-OP WILL CALL Carbon Dioxide Level June 14, 2014 10:43am 26 MEQ/L N 22-30 COMMENT PRE-OP WILL CALL Chemistry Specimen Hemolysis June 14, 2014 10:43am < 15 0-25 0-25 : No Hemolysis.26-70: Slight Hemolysis - can falsely elevate K and Urine Protein. 71-285: Moderate Hemolysis - can falsely elevate K, Troponin I, CA 19-9, PTH, CSF GLucose, and Urine Protein, and can falsely decrease Phenytoin. 286-999: Gross Hemolysis - can falsely elevate K, Troponin I, CA 19-9, PTH, CSF Glucose, and Urine Protine, and can falsely decrease Phenytoin. Recommend specimen recollection. Chloride Level June 14, 2014 10:43am 104 MEQ/L N 98-107 COMMENT PRE -OP WILL CALL Conjugated Bilirubin January 01, 2011 12:57pm 0.00 MG/DL N 0.00-0.30 Creatinine June 14, 2014 10:43am 0.8 MG/DL N 0.8-1.5 COMMENT PRE- OP WILL CALL Eosinophils # (Manual) June 30, 2013 7:05pm 0.2 T/MM3 N 0-0.5 Eosinophils % (Manual) June 30, 2013 7:05pm 2.0 % N 0-4 Globulin June 14, 2014 10:43am 3.0 G/DL N 2.4-3.6 COMMENT PRE-OP WILL CALL Glomerular Filtration Rate Calc June 14, 2014 10:43am 100 - COMMENT PRE-OP WILL CALL Glucometer October 17, 2012 8:26am 118 mg/dL H 75-110 Glucose Level June 14, 2014 10:43am 145 MG/DL H 75-110 COMMENT PRE- OP WILL CALL Hematocrit June 30, 2013 7:05pm 43.6 % N 41-53 Hemoglobin June 30, 2013 7:05pm 15.3 GM/DL N 13.5-17.5 Icterus Index June 14, 2014 10:43am < 2 0-7 COMMENT PRE-OP WILL CALL Lab Scanned Report June 30, 2013 8:37pm LAB TEST FORM REQUEST [id number] - Lymphocytes # (Manual) June 30, 2013 7:05pm [...] 194 T/MM3 N 130-400 Potassium Level June 14, 2014 10:43am 4.3 MEQ/L N 3.6-5 COMMENT PRE -OP WILL CALL RDW Standard Deviation June 30, 2013 7:05pm 42.1 FL N 36.9-50.2 Red Blood Count June 30, 2013 7:05pm 4.85 M/MM3 N 4.50-5.90 Sodium Level June 14, 2014 10:43am 143 MEQ/L N 134-144 COMMENT PRE- OP WILL CALL Total Bilirubin June 14, 2014 10:43am 0.70 MG/DL N 0.20-1.30 COMMENT PRE-OP WILL CALL Total Protein June 14, 2014 10:43am 7.4 G/DL N 6.3-8.2 COMMENT PRE- OP WILL CALL Turbidity June 14, 2014 10:43am < 20 0-20 COMMENT PRE-OP WILL CALL Unconjugated Bilirubin January 01, 2011 12:57pm 1.20 MG/DL H 0.00-1.10 Urine Amorphous Urates June 30, 2013 6:25pm Moderate - Urine Bacteria June 14, 2014 10:37am Trace H - COMMENT C&S IF INDICATEDHas specimen been collected/obtained? Y Urine Bilirubin June 14, 2014 10:37am Negative - COMMENT C&S IF INDICATEDHas specimen been collected/obtained? Y Urine Blood June 14, 2014 10:37am Negative - COMMENT C&S IF INDICATEDHas specimen been collected/obtained? Y Urine Calcium Oxalate Crystals June 14, 2014 10:37am Few - COMMENT C&S IF INDICATEDHas specimen been collected/obtained? Y Urine Collection Type June 14, 2014 10:37am Cleancatch-midstream - COMMENT C&S IF INDICATEDHas specimen been collected/obtained? Y Urine Color June 14, 2014 10:37am Yellow - COMMENT C&S IF INDICATEDHas specimen been collected/obtained? Y Urine Culture Indicated June 30, 2013 6:25pm Cult reflexed &setup - Urine Glucose (UA) June 14, 2014 10:37am Trace H - COMMENT C&S IF INDICATEDHas specimen been collected/obtained? Y Urine Ketones June 14, 2014 10:37am Negative - COMMENT C&S IF INDICATEDHas specimen been collected/obtained? Y Urine Leukocyte Esterase June 14, 2014 10:37am Negative - COMMENT C&S IF INDICATEDHas specimen been collected/obtained? Y Urine Mucus January 01, 2011 12:14pm Present - Has specimen been collected/obtained? Y Urine Nitrite June 14, 2014 10:37am Negative - COMMENT C&S IF INDICATEDHas specimen been collected/obtained? Y Urine Protein June 14, 2014 10:37am 2+ H - COMMENT C&S IF INDICATEDHas specimen been collected/obtained? Y Urine RBC June 14, 2014 10:37am 0-1 /HPF - COMMENT C&S IF INDICATEDHas specimen been collected/obtained? Y Urine Specific [place] June 14, 2014 10:37am 1.025 - COMMENT C&S IF INDICATEDHas specimen been collected/obtained? Y Urine Squamous Epithelial Cells June 14, 2014 10:37am 10-20 - COMMENT C&S IF INDICATEDHas specimen been collected/obtained? Y Urine Turbidity June 14, 2014 10:37am Clear - COMMENT C&S IF INDICATEDHas specimen been collected/obtained? Y Urine Urobilinogen June 14, 2014 10:37am 0.2 EU/DL - COMMENT C&S IF INDICATEDHas specimen been collected/obtained? Y Urine WBC June 14, 2014 10:37am 0-1 /HPF - COMMENT C&S IF INDICATEDHas specimen been collected/obtained? Y Urine pH June 14, 2014 10:37am 6.5 - COMMENT C&S IF INDICATEDHas specimen been collected/obtained? Y White Blood Count June 30, 2013 7:05pm 8.0 T/MM3 N 4.5-11.0 Blood Culture Blood January 01, 2011 2:30pm NO GROWTH AFTER 5 DAYS Throat Culture Throat June 30, 2013 6:25pm Urine Culture Urine, Voided-Not Cc-Midstream June 30, 2013 7:49pm Staphylococcus Lugdunensis Gram Stain Groin June 03, 2009 8:00pm Procedures Procedure Status Date Provider(s) Shoulder arthroscopy completed 06/14/14 ARMANI WEINER MD
--- OUTSIDE RECORDS SUMMARY | 2016-11-25 16:28 | XMS REPORT | Referral Summary ---
Author Author [facility] Organization [facility] Address Unknown Phone Unavailable Care Team Providers Care Wood Grainer Name Role Phone Brigida Martinez Primary Care Physician [phone] Encounter VC Date(s): 04/18/16 - 04/18/16 [facility] [address] [place] [id number] Discharge Diagnosis: Benign hypertension Discharge Diagnosis: Stented coronary artery Discharge Diagnosis: Diabetes, type 2 w/ perf circ disc Discharge Diagnosis: Hyperlipidemia Discharge Diagnosis: BPH with urinary obstruction Discharge Disposition: 01-Home or Self Care Attending Physician: Herrera Martinez MD Admitting Physician: Herrera Martinez MD Vital Signs Most recent to 1 oldest [Reference Range]: Blood Pressure 134/96 mmHg [90-140/60-90 mmHg] (04/18/16 10:19 AM) Problem List Condition Effective Dates Status Health [...] niacin severe flushing Active sulfamethoxazole Active Medications finasteride 5 mg oral tablet 5 mg 1 tabs, Oral, Daily, # 30 tabs, 5 Refill(s), Pharmacy: [facility] # [id number], 1 tabs Oral Daily Start Date: 02/24/15 Status: Ordered FLUoxetine 40 mg oral capsule See Instructions, TAKE ONE CAPSULE BY MOUTH DAILY, # 90 caps, 1 Refill(s), eRx: [facility] #[id number], TAKE ONE CAPSULE BY MOUTH DAILY Start Date: 12/19/15 Status: Ordered gabapentin 300 mg oral capsule See Instructions, TAKE ONE CAPSULE BY MOUTH THREE TIMES A DAY, # 270 caps, 3 Refill(s), Pharmacy: [facility] #[id number], TAKE ONE CAPSULE BY MOUTH THREE TIMES A DAY Start Date: 08/17/15 Status: Ordered indomethacin 50 mg oral capsule See Instructions, TAKE ONE CAPSULE BY MOUTH TWICE A DAY, # 180 caps, 0 Refill(s) , Pharmacy: [facility] #[id number], TAKE ONE CAPSULE BY MOUTH TWICE A DAY Start Date: 04/10/16 Status: Ordered Kombiglyze XR 2.5 mg-1000 mg oral tablet, extended release See Instructions, TAKE ONE TABLET BY MOUTH EVERY EVENING, # 90 tabs, 0 Refill(s) , Pharmacy: [facility] #[id number] Start Date: 04/10/16 Status: Ordered lisinopril 30 mg oral tablet See Instructions, TAKE TWO TABLETS BY MOUTH DAILY, # 60 tabs, 0 Refill(s), Pharmacy: [facility] #[id number] Start Date: 04/10/16 Status: Ordered Miscellaneous DME DME Item One touch Ultra Blue test strips Use to test blood sugar 3x daily DX : E11.21, See Instructions, # 2 boxes, 3 Refill(s), Pharmacy: [facility] # [id number], One touch Ultra Blue test strips; Use to test blood sugar 3x daily; DX: E11.21, Supply Start Date: 10/11/15 Status: Ordered omeprazole 20 mg oral delayed release tablet mg tabs, Oral, Daily, 0 Refill(s) Start Date: 02/14/15 Status: Ordered Percocet 7.5/325 oral tablet 1 tabs, Oral, TID, Must last 30 days., # 90 tabs, 0 Refill(s) Start Date: 04/18/16 Status: Ordered Plavix 75 mg oral tablet See Instructions, TAKE ONE TABLET BY MOUTH DAILY, # 90 tabs, 0 Refill(s), Pharmacy: [facility] #[id number], TAKE ONE TABLET BY MOUTH DAILY Start Date: 04/10/16 Status: Ordered simvastatin 20 mg oral tablet See Instructions, TAKE ONE TABLET EVERY SATURDAY, SATURDAY AND SATURDAY, # 39 tabs , 0 Refill(s), Pharmacy: [facility] #[id number], TAKE ONE TABLET EVERY SATURDAY , SATURDAY AND SATURDAY Start Date: 04/10/16 Status: Ordered tamsulosin 0.4 mg oral capsule 0.4 mg 1 caps, Oral, Daily, # 90 caps, 1 Refill(s), Pharmacy: [facility] # [id number], 1 caps Oral Daily Start Date: 05/27/15 Status: Ordered Results Chemistry Most recent to 1 oldest [Reference Range]: Hgb A1c [4.1-5.6 %] 6.3 % *HI* (04/18/16 11:01 AM) eAvg Glucose 134.1 mg/dL (04/18/16 11:01 AM) Immunizations Vaccine Date Refusal Reason hepatitis A-hepatitis B vaccine 06/22/13 hepatitis A-hepatitis B vaccine 10/29/11 hepatitis A-hepatitis B vaccine 08/11/09 influenza virus vaccine, inactivated 04/14/14 influenza virus vaccine, live 08/11/12 tetanus/diphtheria/pertussis, acel(Tdap) 06/03/09 Procedures Procedure Date Related Diagnosis Body Site Collection of venous blood by venipuncture 04/18/16 Diabetic foot examination1 07/07/14 Colon cancer screening2 10/17/12 Colonoscope 10/17/12 Angioplasty3 02/2009 Liver biopsy sample 07/15/06 Liver bx 2006 Diabetic eye exam4 Tonsillectomy 1NO CONCERNS 2Colonoscopy, diverticulosis, tubular adenoma, hyperplastic polyp. Repeat in 5 years. See [employer]. 3multiple caths, [address] Moreno. See conversion document. 4no diabetic retinopathy-saw Shalini Graham Social History Social History Type Response Smoking Status Current every day smoker; Type: Cigarettes; Tobacco use per day: 1 Pack; Number of years: 40 Assessment and Plan No data available for this section
--- OUTSIDE RECORDS SUMMARY | 2016-11-25 16:28 | XMS REPORT | Continuity of Care Document ---
Author Author [facility] Organization [facility] Address Unknown Phone Unavailable Support Name Relationship Address Phone HINKLE ANAM Delbert CARDENAS Caregiver [address] [place] [address] Unavailable JOE BISHOP MD Caregiver [address] [place] [address] Unavailable GARIMA PRATT Next Of Kin [address] [place] [address] Insurance Providers Guarantor Elliott Pratt Address [address] [place] [address] CP Email [email or web address] [facility] Policy Number [id number] Subscriber's Name Renny Pratty Mahendra Relationship 01 Spouse Group Number [id number] Chief Complaint and Reason for Visit Chief Complaint Dizzy Reason for Visit Hyperglycemia Problems Active Problems Medical Problem Onset Date Status Abdominal pain Unknown Acute Gastritis Unknown Acute Right shoulder strain Unknown Acute Right shoulder strain Unknown Acute Past Problems Medical Problem Onset Date Hyperglycemia Unknown Medications Current Home Medications Medication Dose Units Route Directions Days Qty Instructions Start Date Clopidogrel Bisulfate (Plavix) 75 Mg Tablet 75 Mg Oral Daily 03/06 Famotidine (Pepcid) 20 Mg Tablet 1 Tab Oral Twice A Day 20 Tablet 04/19/15 Fenofibrate,Micronized (Fenofibrate) 160 Mg Tablet 160 Mg Oral Daily 10/16/12 Fluoxetine Hcl (Prozac) 40 Mg Capsule 40 Mg Oral Daily 01/01/11 Gabapentin 300 Mg Capsule Daily 10/16/12 Glipizide 5 Mg Tablet 2 Tab Oral Twice A Day 06/09/14 Hydrocodone/Acetaminophen (Michael 5-325 Tablet) 1 Each Tablet 1-2 Tab Oral Every 6 Hours as needed for Pain 20 Tablet 04/19/15 Ibuprofen 800 Mg Tablet 1 Tab Oral Every 8 Hours 7 Days 02/28/14 Lisinopril 30 Mg Tablet 60 Mg Oral Daily 01/01/11 Ondansetron (Zofran Odt) 4 Mg Tab.rapdis 4 Mg Oral Four Times Daily as needed for Nausea &/Or Vomiting 3 Days 12 Tablet 08/15/16 Saxagliptin Hcl/Metformin Hcl (Kombiglyze Xr 2.5-1,000 Mg Tab) 1 Each Tbmp.24hr Bedtime 08/15/16 Past Home Medications Medication Directions Ordered Status Ciprofloxacin Hcl (Cipro) 500 Mg Tablet, 500 Mg Oral Every 12 Hours 06/09/14 Discontinued Cyclobenzaprine Hcl 10 Mg Tablet, 1 Tab Oral Three Times A Day for Pain &/Or Spasm 02/28/14 Discontinued Fenofibrate,Micronized (Fenofibrate) 54 Mg Tablet, 54 Mg Oral Daily 01/01/11 Discontinued Glimepiride 1 Mg Tablet, 1 Mg Oral Daily 01/01/11 Discontinued Hydrocodone/Acetaminophen (Michael 5-325 Tablet) 1 Each Tablet, 1-2 Tab Oral Every 6 Hours as needed for Pain 02/28/14 Discontinued Indomethacin 50 Mg Capsule, 50 Mg Oral Daily 01/01/11 Discontinued Lovastatin 40 Mg Tablet, 40 Mg Oral Daily 01/01/11 Discontinued Metformin Hcl 500 Mg Tablet, 1000 Mg Oral Twice A Day 01/01/11 Discontinued Metformin Hcl (Metformin Hcl Er) 500 Mg Tab.er.24h, 10/16/12 Discontinued Metronidazole 500 Mg Tablet, 500 Mg Oral Three Times A Day 01/01/11 Discontinued Niacin (Niaspan) 500 Mg Tablet.sa, 500 Mg Oral Twice A Day 01/01/11 Discontinued Saxagliptin Hcl/Metformin Hcl (Kombiglyze Xr 5-1,000 Mg Tab) 1 Each Tbmp.24hr, Twice A Day 10/16/12 Discontinued Social History Social History Problem Response Recorded Date/Time Onset Date Status Chewing Tobacco Status No 10/16/2012 3:36pm Not Applicable Not Applicable Hx Substance Use No 08/15/2016 6:33am Not Applicable Not Applicable Hx Alcohol Use No 08/15/2016 6:33am Not Applicable Not Applicable Has the pt used tobacco in the last 12 months Yes 06/09/2014 10:46am Not Applicable Not Applicable Tobacco Usage none 03/15/2014 8:10am Not Applicable Not Applicable Query Response Start Date Stop Date Smoking Status Current every day smoker Hospital Discharge Instructions No hospital discharge instructions. Plan of Care Discharge Date 08/15/16 8:20am Disposition 01 DISCHARGED HOME, SELF-CARE Condition at Discharge Improved Instructions/Education Provided Diabetic Hyperglycemia (ED) Prescriptions See Medication Section Referrals JOE BISHOP MD Order Date: 2 Days Address: [address] [place] [address] [place], [place] [phone] Note: Additional Instructions/Education Follow up as directed. Return to the ED if your condition worsens or changes in any manner. Care Plan and Goals Physician Care Plan Problem:Physician Care Plan Problem: Hyperglycemia Goal: Follow up with primary care provider Instructions: Take medications and follow care plan as discussed/written Goal: Follow up with primary care provider Instructions: Take medications and follow care plan as discussed/written Functional Status No functional status results. Allergies, Adverse Reactions, Alerts Allergen Type Severity Reaction Status Last Updated Sulfa (Sulfonamide Antibiotics) Allergy Unknown HIVES Active 08/15/16 Niacin Allergy Unknown SEVERE FLUSHING Active 08/15/16 Saxagliptin Allergy Unknown LEG CRAMPS Active 08/15/16 Immunizations Query Response on File Recorded Date/Time Hx Influenza Vaccination Y APR 2014 04/18/15 11:00pm Hx Pneumococcal Vaccination No 04/18/15 11:00pm Hx Influenza Vaccination Y APR 2014 04/18/15 11:00pm Vital Signs Acute Vital Signs Vital Response Date/Time Temperature (Fahrenheit) 98.1 deg F (96.8 - 99.1) 08/15/2016 8:22am Temperature (Calculated Celsius) 36.79530 degrees C (36.0 - 37.3) 08/15/2016 8:22am Pulse Rate (adult) 94 bpm (60 - 100) 08/15/2016 8:22am Respiratory Rate 16 breaths/min (10 - 20) 08/15/2016 8:22am O2 Sat by Pulse Oximetry 96 % (90 - 100) 08/15/2016 8:22am Blood Pressure 105/67 mm Hg 08/15/2016 8:22am Height (Feet) 6 feet 08/15/2016 6:15am Height (Inches) 0 inches 08/15/2016 6:15am Weight (Kilograms) 128.400 kg 08/15/2016 6:15am Body Mass Index (BMI) 38.0 08/15/2016 6:15am Results Laboratory Results Test Name Result Units Flags Reference Collection Date/Time Result Date/ Time Comments White Blood Count 7.4 T/MM3 4.5-11.0 08/15/2016 6:48am 08/15/2016 6: 56am Red Blood Count 4.85 M/MM3 4.50-5.90 08/15/2016 6:48am 08/15/2016 6: 56am Hemoglobin 14.7 GM/DL 13.5-17.5 08/15/2016 6:48am 08/15/2016 6:56am Hematocrit 42.1 % 41-53 08/15/2016 6:48am 08/15/2016 6:56am Mean Corpuscular Volume 86.8 UM3 80-100 08/15/2016 6:48am 08/15/2016 6: 56am Mean Corpuscular Hemoglobin 30.3 UUG 26-34 08/15/2016 6:48am 2016 6:56am Mean Corpuscular Hemoglobin Concent 34.9 GM/DL 31-37 08/15/2016 6:48am 08/15/2016 6:56am RDW Standard Deviation 41.2 FL 36.9-50.2 08/15/2016 6:48am 08/15/2016 6 :56am Platelet Count 185 T/MM3 130-400 08/15/2016 6:48am 08/15/2016 6:56am Mean Platelet Volume 10.7 UM3 9.4-12.4 08/15/2016 6:48am 08/15/2016 6: 56am Neutrophils (%) (Auto) 59.3 % 33-66 08/15/2016 6:48am 08/15/2016 6: 56am Lymphocytes (%) (Auto) 27.7 % 23-45 08/15/2016 6:48am 08/15/2016 6: 56am Monocytes (%) (Auto) 10.2 % H 0-9.0 08/15/2016 6:48am 08/15/2016 6:56am Eosinophils (%) (Auto) 1.7 % 0-4 08/15/2016 6:48am 08/15/2016 6:56am Basophils (%) (Auto) 0.7 % 0-2 08/15/2016 6:48am 08/15/2016 6:56am Immature Granulocyte % (Auto) 0.4 % 0.0-0.5 08/15/2016 6:48am 2016 6:56am Absolute Neutrophils (auto) 4.4 T/MM3 1.8-7.7 08/15/2016 6:48am 2016 6:56am Absolute Lymphocytes (auto) 2.1 T/MM3 1-4.8 08/15/2016 6:48am 2016 6:56am Absolute Monocytes (auto) 0.8 T/MM3 0-0.8 08/15/2016 6:48am 08/15/2016 6:56am Absolute Eosinophils (auto) 0.1 T/MM3 0-0.5 08/15/2016 6:48am 2016 6:56am Absolute Basophils (auto) 0.1 T/MM3 0-0.2 08/15/2016 6:48am 08/15/2016 6:56am Absolute Immature Granulocyte (auto 0.03 T/MM3 0.00-0.03 08/15/2016 6: 48am 08/15/2016 6:56am Icterus Index < 2 0-7 08/15/2016 6:48am 08/15/2016 7:14am Chemistry Specimen Hemolysis < 15 0-25 08/15/2016 6:48am 08/15/2016 7 :14am 0-25: Specimen Exhibited No Hemolysis. Turbidity < 20 0-20 08/15/2016 6:48am 08/15/2016 7:14am Sodium Level 134 MEQ/L 134-144 08/15/2016 6:48am 08/15/2016 7:01am Potassium Level 4.0 MEQ/L 3.6-5 08/15/2016 6:48am 08/15/2016 7:01am Chloride Level 102 MEQ/L 98-107 08/15/2016 6:48am 08/15/2016 7:01am Carbon Dioxide Level 20 MEQ/L L 22-30 08/15/2016 6:48am 08/15/2016 7: 01am Anion Gap 12 MEQ/L 5-15 08/15/2016 6:48am 08/15/2016 7:01am Blood Urea Nitrogen 16.0 MG/DL 9-20 08/15/2016 6:48am 08/15/2016 7: 01am Creatinine 0.9 MG/DL 0.8-1.5 08/15/2016 6:48am 08/15/2016 7:01am BUN/Creatinine Ratio 18 RATIO 6-26 08/15/2016 6:48am 08/15/2016 7:01am Glomerular Filtration Rate Calc 87 08/15/2016 6:48am 08/15/2016 7: 01am Glucose Level 182 MG/DL H 75-110 08/15/2016 6:48am 08/15/2016 7:01am Calculated Osmolality 264 MOSM/KG 261-280 08/15/2016 6:48am 08/15/2016 7:01am Calcium Level 10.0 MG/DL 8.4-10.2 08/15/2016 6:48am 08/15/2016 7:01am Total Bilirubin 0.70 MG/DL 0.20-1.30 08/15/2016 6:48am 08/15/2016 7: 01am Alkaline Phosphatase 64 U/L 38-126 08/15/2016 6:48am 08/15/2016 7:01am Total Protein 7.8 G/DL 6.3-8.2 08/15/2016 6:48am 08/15/2016 7:01am Albumin 4.4 G/DL 3.5-5.0 08/15/2016 6:48am 08/15/2016 7:01am Globulin 3.4 G/DL 2.4-3.6 08/15/2016 6:48am 08/15/2016 7:01am Albumin/Globulin Ratio 1.3 RATIO 1.1-2.2 08/15/2016 6:48am 08/15/2016 7 :01am Aspartate Amino Transf (AST/SGOT) 34 U/L 17-59 08/15/2016 6:48am 2016 7:01am Alanine Aminotransferase (ALT/SGPT) 39 U/L 21-72 08/15/2016 6:48am 07/2016 7:01am Troponin I < 0.012 ng/ml 0-0.12 08/15/2016 6:48am 08/15/2016 7:14am Troponin values with a difference of 55% increase from orginal troponin value represent a true biological DELTA value. (%increase Calc=Orginal Troponin value, divided by subsequent Troponin value, multiplied by 100) Urine Collection Type CLEANCATCH-MIDSTREAM 08/15/2016 7:44am 2016 7:56am Urine Color YELLOW YELLOW 08/15/2016 7:44am 08/15/2016 7:56am Urine Turbidity CLEAR CLEAR 08/15/2016 7:44am 08/15/2016 7:56am Urine Specific [place] 1.025 1.015-1.025 08/15/2016 7:44am 2016 7:56am Urine pH 5.5 5.0-8.0 08/15/2016 7:44am 08/15/2016 7:56am Urine Leukocyte Esterase NEGATIVE NEGATIVE 08/15/2016 7:44am 2016 7:56am Urine Nitrite NEGATIVE NEGATIVE 08/15/2016 7:44am 08/15/2016 7:56am Urine Protein 2+ A NEGATIVE 08/15/2016 7:44am 08/15/2016 7:56am Urine Glucose (UA) 1+ A NEGATIVE 08/15/2016 7:44am 08/15/2016 7:56am Urine Ketones NEGATIVE NEGATIVE 08/15/2016 7:44am 08/15/2016 7:56am Urine Urobilinogen 0.2 EU/DL NORMAL 08/15/2016 7:44am 08/15/2016 7: 56am Urine Bilirubin NEGATIVE NEGATIVE 08/15/2016 7:44am 08/15/2016 7: 56am Urine Blood NEGATIVE NEGATIVE 08/15/2016 7:44am 08/15/2016 7:56am Urine WBC 0-1 /HPF 0-5 08/15/2016 7:44am 08/15/2016 8:05am Urine RBC 0-1 /HPF 0-3 08/15/2016 7:44am 08/15/2016 8:05am Urine Squamous Epithelial Cells 5-10 08/15/2016 7:44am 08/15/2016 8 :05am Urine Bacteria TRACE H NEGATIVE 08/15/2016 7:44am 08/15/2016 8:05am Urine Mucus PRESENT 08/15/2016 7:44am 08/15/2016 8:05am Urine Hyaline Casts 1-3 /LPF 08/15/2016 7:44am 08/15/2016 8:05am Urine Culture Indicated CULT NOT INDICATED 08/15/2016 7:44am 2016 8:05am Name: ELLIOTT PRATT Unit #: [id number] : [id number] Sex: M Admit Date: Loc / Svc: ED Discharge Date: DIAGNOSTIC IMAGING REPORT Report #: [id number] [facility] [place] INDICATION: ITS.REASON: Productive cough and shortness of breath for one month PROCEDURE: CHEST 2-VIEWS UPRIGHT (PA \T\ LAT) Encounter: Initial COMPARISON: None FINDINGS: The lungs are clear without evidence of focal abnormal airspace opacity. There is no pleural effusion or pneumothorax. The heart size, mediastinal contours and pulmonary vascularity are within normal limits. There is no significant skeletal abnormality. IMPRESSION: No acute cardiopulmonary disease. . Procedures No known history of procedures. Encounters Encounter Location Arrival/Admit Date Discharge/Depart Date Attending Provider Departed Emergency Room [facility] 08/15/16 6:13am 08/15/16 8: 20am ANAM HINKLE DO Recent Diagnosis
--- NOTE | 2016-11-25 16:34 | NUR ---
PROVIDER UNA JULIEN IN ROOM W/ PT.
--- OUTSIDE RECORDS SUMMARY | 2016-11-25 16:40 | XMS REPORT | Continuity of Care Document ---
Author Author [facility] Organization [facility] Address Unknown Phone Unavailable Support Name Relationship Address Phone GARIMA LUNA MD Caregiver [address] [facility] [place] [phone] JAVIER MATT MD Caregiver [address] [place] [address] GARIMA PRATT Next Of Kin [address] [place] [address] [id number] Insurance Providers Payer Name Policy Number Subscriber Name Relationship Benefit Management Pcn [id number] ChaparroRenny birminghamy 01 Spouse Problems Medical Problems [...] F (96.8 - 99.1) Temperature (Calculated Celsius) 36.26109 degrees C (36.0 - 37.3) Pulse Rate [...] 6:25pm None seen /HPF - Urine Specific [place] June 30, 2013 6:25pm 1.010 L - [...] 30, 2013 8:37pm LAB TEST FORM REQUEST [id number] - Glomerular Filtration Rate Calc June 30, 2013 7:05pm 70 - Blood Culture Blood January 01, 2011 2:30pm NO GROWTH AFTER 5 DAYS Throat Culture Throat June 30, 2013 6:25pm Urine Culture Urine, Voided-Not Cc-Midstream June 30, 2013 7:49pm Staphylococcus Lugdunensis Gram Stain Groin June 03, 2009 8:00pm Procedures No known history of procedures. Encounters Encounter Location Date/Time Departed Emergency Room [facility] 02/28/14 7:34pm Recent Diagnosis
--- OUTSIDE RECORDS SUMMARY | 2016-11-25 16:40 | XMS REPORT | Continuity of Care Document ---
Author Author [facility] Organization [facility] Address Unknown Phone Unavailable Allergies Active [...] Status Pt. Type Provider Facility Loc./Unit Complaint [id number] 06/22/2013 08:29:00 06/22/2013 23 :59:59 CLS Outpatient
--- OUTSIDE RECORDS SUMMARY | 2016-11-25 16:41 | XMS REPORT | Continuity of Care Document ---
Author Author [facility] Organization [facility] Address Unknown Phone Unavailable Support Name Relationship Address Phone ARMANI WEINER MD Caregiver [facility] [address] [place] [address] ALEJANDRO LUNA MD Caregiver [address] [place] [address] [address] [place], [place] [phone] ALEJANDRO PRATT Next Of Kin [address] [place] [address] CP Insurance Providers Payer Name Policy Number Subscriber Name Relationship Benefit Management Pcn [id number] Alejandro Pratt 01 Spouse Advance Directives Directive [...] F (96.8 - 99.1) Temperature (Calculated Celsius) 36.03392 degrees C (36.0 - 37.3) Temperature Source [...] 30, 2013 8:37pm LAB TEST FORM REQUEST [id number] - Lymphocytes # (Manual) June 30, 2013 [...] INDICATEDHas specimen been collected/obtained? Y Urine Specific [place] June 14, 2014 10:37am 1.025 - COMMENT [...]
[2016-11-25] MEDS ORDERED: SIMV20TA6 PO (16:56)
[2016-11-25] MEDS ORDERED: INDO50CA71 PO (16:56)
[2016-11-25] MEDS ORDERED: OXYC-532 PO (16:56)
[2016-11-25] MEDS ORDERED: OMEP20CA10 PO (16:56)
--- NOTE | 2016-11-25 16:58 | ERPDOC ---
Departure Disposition Decision Date: November 25, 2016 Disposition Decision Time: 17:55 (ANGE REIDA Kristine JOINT FINISHER) Disposition: 02 TO OBS [facility] [place] Impression Impression (ANGE REIDA Kristine VALENTE) Impression: Primary Impression: Acute renal failure (ARF) Acute renal failure type: unspecified Qualified Codes: N17.9 - Acute kidney failure, unspecified Severity: Moderate (NOLD,KUMAR N JOINT FINISHER) Condition: Stable Seen By: Mid-level only (KUMAR REID APRN) Referrals: JOE BISHOP MD (Family) Problems/Meds/Labs Reviewed?: Yes Medications reviewed and manag: Yes (NOANGE VELASQUEZA Kristine VALENTE) Follow up care ordered?: Yes Mental Status: Alert (NOANGE VELASQUEZA Kristine VALENTE) HPI - General Medical General Chief Complaint: Acute Medical Problem Stated Complaint: HIGH BLOOD SUGAR Time Seen by Provider: 16:34 Source: patient Exam Limitations: no limitations (KUMAR REID APRN) Time Seen by Provider: 16:34 (LUCIA NOVOA MD) HPI - General Medical Initial Comments He was at home today around 1430 and had a syncopal episode. He did have trouble getting up after that because he was light headed. He does have diabetes and noted that his blood sugar was higher today than usual. It was in the 200s. He does take Metformin at home. His feels that he has been drinking more fluid than normal today. Denies any headache, nausea, vomiting, or pain. He is noted to have a pulse in the low 100s and systolic blood pressure of 107. He does have a history of vertigo in the past. Has had some trouble voiding at home and when he did void it "had an awful smell.". Occurred At: home Onset: Gradual Duration: 6-12 hrs Severity: moderate Associated Symptoms: malaise, syncope, DENIES: chest pain, cough, diaphoresis, fever/chills, headaches, loss of appetite, nausea/vomiting, rash, seizure, shortness of breath, weakness Hx of Similar Symptoms: No (NOLD,KUMAR N JOINT FINISHER) Allergies: Coded Allergies: Sulfa (Sulfonamide Antibiotics) (Verified Allergy, Unknown, HIVES, 08/15/16) niacin (Verified Allergy, Unknown, SEVERE FLUSHING, 08/15/16) saxagliptin (Verified Allergy, Unknown, LEG CRAMPS, 08/15/16) Past History Past Medical History Metabolic: diabetes, hypercholesterolemia, hypertension Cardiac: CHF GI: GERD Musculoskeletal: osteoarthritis Infectious: hepatitis C Psychological: depression (NOLD,KUMAR N JOINT FINISHER) Surgical History Cardiac: cardiac cath, cardiac stent (NOLD,KUMAR N JOINT FINISHER) Vaccines Hx Influenza Vaccination: Yes (APR 2014) Hx Pneumococcal Vaccination: No (NOLD,KUMAR N JOINT FINISHER) Social History Substance Use Type: former substance user Alcohol Intake: occasionally (NOLD,KUMAR N JOINT FINISHER) Review of Systems Constitutional Constitutional: appetite decrease, dizziness, DENIES: chills, fatigue, fever, weakness (NOLD,KUMAR N JOINT FINISHER) Eyes Vision: DENIES: blurring, double vision (NOLD,KUMAR N JOINT FINISHER) ENMT Ears: DENIES: drainage, pain Sinuses: DENIES: congestion, rhinorrhea Mouth/Throat: DENIES: scratchy throat, sore throat (NOLD,KUMAR N JOINT FINISHER) Cardiovascular Cardiac: DENIES: chest pain, dyspnea on exertion, orthopnea Rhythm/Rate: DENIES: irregular beat, palpitations (NOLD,KUMAR N JOINT FINISHER) Pulmonary Respiratory: DENIES: cough, dyspnea, sputum (NOLD,KUMAR N JOINT FINISHER) GI Upper Abdomen: DENIES: nausea, pain, vomiting Lower Abdomen: DENIES: constipation, diarrhea, pain (NOLD,KUMAR N JOINT FINISHER) General: DENIES: dysuria, frequency, urgency (NOLD,KUMAR N JOINT FINISHER) Neurological General: DENIES: headache, numbness, tingling, weakness (NOLD,KUMAR N JOINT FINISHER) Physical Exam General General Nourishment: well nourished, well developed, appears stated age, no acute distress, adult General Body Habitus: well groomed (NOLD,KUMAR N JOINT FINISHER) Vitals and Pain First Documented Vital Signs Date Time Temp Pulse Resp B/P Pulse Ox O2 Delivery O2 Flow Rate FiO2 11/25/16 16:27 98.1 110 20 104/55 94 Room Air (LUCIA NOVOA MD) Vitals and Pain Weight: Kilograms: Height (feet): 6 Height (inches): 0 Triage Pain Scale: (NOLD,KUMAR N JOINT FINISHER) RN VS reviewed by Provider: Yes (KUMAR REID APRN) Normal Exams: Neck: Full range of motion, without adenopathy, JVD, bruits or thyromegaly Chest/Resp: Clear all barraza, with good airflow, and symmetry bilaterally CV: Regular rate and rhythm, without murmur or gallop, Pulses 2+ all extremities, capillary refill, <2 seconds all ext., no pedal edema noted Abdomen: Bowel sounds positive, soft, non-tender, non-distended, no hepatosplenomegaly, masses or bruits noted Lymphatic: No lymphadenopathy, or lymphedema noted Integumentary: No rashes, hives, or bruising noted Neurologic: Patient is alert, and oriented, cranial nerves, motor/sensory/ cerebellar, exams w/o gross deficits, to observation Psychiatric: Patient exhibits, appropriate attention, emotion and affect (KUMAR REID APRN) Differential Diagnoses Considering: Acute NV, Hypo/Hyperglycemia, Hypo/Hyperkalemia, Hypo/ Hypernatremia, Medication Effect, Metabolic, UTI (KUMAR REID APRN) Progress Results/Orders Orders Procedure Category Date Status Time EKG EKG 11/25/16 Taken Iv Lock (Ed Only) EDM 11/25/16 Transmitted 16:53 Cbc W/Auto LAB 11/25/16 Complete Diff-Reflex Manual Bmp - Basic Metabolic LAB 11/25/16 Complete Panel Troponin I W LAB 11/25/16 Complete Hemolysis Index Normal Saline (Normal PHA 11/25/16 Complete Saline Iv) 17:00 Place In Facility As: ADMIT 11/25/16 Transmitted (LUCIA NOVOA MD) Lab Results Laboratory Tests Test 11/25/16 16:35 11/25/16 17:21 Glucometer 143mg/dL White Blood Count 9.2T/MM3 Red Blood Count 4.75M/MM3 Hemoglobin 14.8GM/DL Hematocrit 41.0% Mean Corpuscular Volume 86.3UM3 Mean Corpuscular Hemoglobin 31.2UUG Mean Corpuscular Hemoglobin Concent 36.1GM/DL RDW Standard Deviation 42.8FL Platelet Count 161T/MM3 Mean Platelet Volume 10.8UM3 Immature Granulocyte % (Auto) 0.3% Neutrophils (%) (Auto) 72.0% Lymphocytes (%) (Auto) 16.7% Monocytes (%) (Auto) 8.7% Eosinophils (%) (Auto) 2.1% Basophils (%) (Auto) 0.2% Absolute Immature Granulocyte (auto 0.03T/MM3 Absolute Neutrophils (auto) 6.6T/MM3 Absolute Lymphocytes (auto) 1.5T/MM3 Absolute Monocytes (auto) 0.8T/MM3 Absolute Eosinophils (auto) 0.2T/MM3 Absolute Basophils (auto) 0.0T/MM3 Turbidity < 20 Sodium Level 143MEQ/L Potassium Level 4.4MEQ/L Chloride Level 103MEQ/L Carbon Dioxide Level 19MEQ/L Anion Gap 21MEQ/L Blood Urea Nitrogen 33.0MG/DL Creatinine 3.7MG/DL Glomerular Filtration Rate Calc 17 BUN/Creatinine Ratio 9RATIO Glucose Level 117MG/DL Calculated Osmolality 283MOSM/KG Calcium Level 10.0MG/DL Icterus Index < 2 Total Creatine Kinase 246U/L Troponin I < 0.012ng/ml Chemistry Specimen Hemolysis < 15 (LUCIA NOVOA MD) Medications Current ED Medications Sodium Chloride (Normal Saline IV) 1,000 ml @ 1,000 mls/hr Q1H ONCE IV Last administered on 11/25/16 17:26; Start 11/25/16 at 17:00; Stop 11/25/16 at 17:59 ; Status DC (LUCIA NOVOA MD) Progress Progress CBC is normal. BMP does show elevated creatinine of 3.7. Last creatinine was 0.9 in August of 2016. Did discuss findings with Dr Vasquez. She will admit for ARF. Troponin and EKG today are normal. (KUMAR REID APRN) KUMAR REID APRN November 25, 2016 16:58 LUCIA NOVOA MD November 28, 2016 19:44
[2016-11-25] MEDS ORDERED: NORMAL SALINE 1,000 ML IV ONE (17:00)
[2016-11-25] MEDS ORDERED: HYDR-4246 PO (17:17)
[2016-11-25 17:30] LABS: BASOPHILS % (AUTO) 0.2 % (0-2); EOSINOPHILS # (AUTO) 0.2 T/MM3 (0-0.5); EOSINOPHILS % (AUTO) 2.1 % (0-4); HGB - HEMOGLOBIN 14.8 GM/DL (13.5-17.5); IMMATURE GRANULOCYTE # (AUTO) 0.03 T/MM3 (0.00-0.03); IMMATURE GRANULOCYTE % (AUTO) 0.3 % (0.0-0.5); LYMPHOCYTES # (AUTO) 1.5 T/MM3 (1-4.8); LYMPHOCYTES % (AUTO) 16.7 % (23-45); MEAN CORPUSCULAR HGB 31.2 UUG (26-34); MEAN CORPUSCULAR HGB CONC(MCHC 36.1 GM/DL (31-37); MEAN CORPUSCULAR VOLUME 86.3 UM3 (80-100); MEAN PLATELET VOLUME 10.8 UM3 (9.4-12.4); MONOCYTES # (AUTO) 0.8 T/MM3 (0-0.8); MONOCYTES % (AUTO) 8.7 % (0-9.0); NEUTROPHILS #(AUTO)-ABSOLUTE 6.6 T/MM3 (1.8-7.7); RED BLOOD COUNT 4.75 M/MM3 (4.50-5.90); WBC - WHITE BLOOD COUNT 9.2 T/MM3 (4.5-11.0)
[2016-11-25 17:34] LABS: ANION GAP 21 MEQ/L (5-15); BUN/CREATININE RATIO 9 RATIO (6-26); CHLORIDE 103 MEQ/L (98-107); CO2 - CARBON DIOXIDE 19 MEQ/L (22-30); CREATININE 3.7 MG/DL (0.8-1.5); GLOMERULAR FILTRATION RATE 17; GLUCOSE 117 MG/DL (75-110); POTASSIUM 4.4 MEQ/L (3.6-5); SODIUM 143 MEQ/L (134-144)
--- OUTSIDE RECORDS SUMMARY | 2016-11-25 18:02 | XMS REPORT | Continuity of Care Document ---
Author Author [facility] Organization [facility] Address Unknown Phone Unavailable Support Name Relationship Address Phone GARIMA LUNA MD Caregiver [address] [facility] [place] [phone] JAVIER MATT MD Caregiver [address] [place] [address] GARIMA PRATT Next Of Kin [address] [place] [address] [phone] Insurance Providers Payer Name Policy Number Subscriber Name Relationship Benefit Management Pcn [id number] ChaparroRenny birminghamy 01 Spouse Problems Medical Problems [...] F (96.8 - 99.1) Temperature (Calculated Celsius) 36.80197 degrees C (36.0 - 37.3) Pulse Rate [...] 6:25pm None seen /HPF - Urine Specific [place] June 30, 2013 6:25pm 1.010 L - [...] 30, 2013 8:37pm LAB TEST FORM REQUEST [id number] - Glomerular Filtration Rate Calc June 30, 2013 7:05pm 70 - Blood Culture Blood January 01, 2011 2:30pm NO GROWTH AFTER 5 DAYS Throat Culture Throat June 30, 2013 6:25pm Urine Culture Urine, Voided-Not Cc-Midstream June 30, 2013 7:49pm Staphylococcus Lugdunensis Gram Stain Groin June 03, 2009 8:00pm Procedures No known history of procedures. Encounters Encounter Location Date/Time Departed Emergency Room [facility] 02/28/14 7:34pm Recent Diagnosis
--- OUTSIDE RECORDS SUMMARY | 2016-11-25 18:02 | XMS REPORT | Continuity of Care Document ---
Author Author [facility] Organization [facility] Address Unknown Phone Unavailable Allergies Active Description [...] Status Pt. Type Provider Facility Loc./Unit Complaint [id number] 06/22/2013 08:29:00 06/22/2013 23 :59:59 CLS Outpatient
--- OUTSIDE RECORDS SUMMARY | 2016-11-25 18:04 | XMS REPORT | Continuity of Care Document ---
Author Author [facility] Organization [facility] Address Unknown Phone Unavailable Support Name Relationship Address Phone ARMANI WEINER MD Caregiver [facility] [address] [place] [address] ALEJANDRO LUNA MD Caregiver [address] [place] [address] [address], [place] [phone] ALEJANDRO PRATT Next Of Kin [address] [place] [id number] CP Insurance Providers Payer Name Policy Number Subscriber Name Relationship Benefit Management Pcn [id number] Alejandro Pratt 01 Spouse Advance Directives Directive [...] F (96.8 - 99.1) Temperature (Calculated Celsius) [phone] degrees C (36.0 - 37.3) Temperature Source [...] 30, 2013 8:37pm LAB TEST FORM REQUEST [id number] - Lymphocytes # (Manual) June 30, 2013 [...] INDICATEDHas specimen been collected/obtained? Y Urine Specific [place] June 14, 2014 10:37am 1.025 - COMMENT [...]
--- NOTE | 2016-11-25 19:11 | NUR ---
REPORT REPORT GIVEN TO MARILEE RN MEDICAL RM [id number]
[2016-11-25] MEDS ORDERED: ACETAMINOPHEN 325 MG TABLET PO PRN (19:15)
[2016-11-25] MEDS ORDERED: INSULIN ASPART 100 UNIT/ML SQ PRN (19:15)
[2016-11-25] MEDS ORDERED: ONDANSETRON 4mg/2ml INJECTION IV PRN (19:15)
[2016-11-25] MEDS ORDERED: ZOLPIDEM 5 MG TABLET PO PRN (19:15)
--- NOTE | 2016-11-25 19:20 | NUR ---
DEPART PT LEFT ER CONDITION IMPROVED W/ DIZZINESS OR WEAKNESS POST FLUIDS, PT MOVED ADMIT TO MEDICAL VIA WHEELCHAIR AND PT CARE XFERED TO MARILEE WISEMAN AND STAFF W/O CHANGE.
[2016-11-25 19:25] VITALS: BP 119/69; PULSE 86; RESP 18; TEMP 96.6; O2SAT 97
[2016-11-25 19:31] VITALS: Ht 185.4 cm; Wt 125.5 kg
--- NOTE | 2016-11-25 19:35 | NUR ---
ADMIT PT WAS ADMITTED IN ROOM 155 FROM ER. ACCOMPANIED BY ER STAFF AND THE . PT ALERT AND ORIENTED. DENIED ANY PAIN. WILL CONTINUE TO MONITOR.
[2016-11-25] MEDS: CEFTRIAXONE 1 G in NORMAL SALINE 100 ML IV SCH (19:45)
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
[2016-11-25] MEDS: NORMAL SALINE 1,000 ML IV SCH (20:16)
[2016-11-25] MEDS: GABAPENTIN 300 MG CAPSULE PO SCH (20:56)
[2016-11-25 20:58] VITALS: PULSE 78; RESP 16; O2SAT 97
[2016-11-25 21:04] VITALS: BP 101/65
[2016-11-25 21:05] VITALS: BP 120/68; PULSE 86
[2016-11-25 21:06] LABS: BLOOD, URINE NEGATIVE (NEGATIVE); COLOR,URINE YELLOW (YELLOW); LEUKOCYTE ESTERASE ,URINE NEGATIVE (NEGATIVE); NITRITE,URINE NEGATIVE (NEGATIVE); UROBILINOGEN,URINE 0.2 EU/DL (NORMAL)
[2016-11-25 21:11] VITALS: BP 95/61; PULSE 93
[2016-11-25 21:13] LABS: BACTERIA,URINE 2+ (NEGATIVE); HYALINE CASTS, URINE 0-1 /LPF; MUCUS,URINE PRESENT; RBC,URINE 0-1 /HPF (0-3); SQUAMOUS EPITHELIAL CELL,UR 20-50; WBC CLUMPS,URINE FEW
[2016-11-25 21:19] LABS: ALBUMIN 4.5 G/DL (3.5-5.0); ANION GAP 18 MEQ/L (5-15); BUN/CREATININE RATIO 10 RATIO (6-26); CALCIUM 9.7 MG/DL (8.4-10.2); CHLORIDE 102 MEQ/L (98-107); CO2 - CARBON DIOXIDE 22 MEQ/L (22-30); CREATININE 3.5 MG/DL (0.8-1.5); GLOMERULAR FILTRATION RATE 18; GLUCOSE 120 MG/DL (75-110); PHOSPHORUS 6.4 MG/DL (2.5-4.5); POTASSIUM 4.6 MEQ/L (3.6-5); SODIUM 142 MEQ/L (134-144)
[2016-11-25 21:22] LABS: CREATININE, URINE RANDOM 229.5 MG/DL
[2016-11-26 00:28] VITALS: BP 118/73; PULSE 82; RESP 20; TEMP 98.2; O2SAT 94
[2016-11-26 04:48] LABS: BASOPHILS % (AUTO) 0.5 % (0-2); EOSINOPHILS # (AUTO) 0.3 T/MM3 (0-0.5); HGB - HEMOGLOBIN 13.6 GM/DL (13.5-17.5); IMMATURE GRANULOCYTE # (AUTO) 0.03 T/MM3 (0.00-0.03); IMMATURE GRANULOCYTE % (AUTO) 0.5 % (0.0-0.5); LYMPHOCYTES # (AUTO) 2.1 T/MM3 (1-4.8); LYMPHOCYTES % (AUTO) 33.1 % (23-45); MEAN CORPUSCULAR HGB 31.3 UUG (26-34); MEAN CORPUSCULAR HGB CONC(MCHC 35.8 GM/DL (31-37); MEAN CORPUSCULAR VOLUME 87.4 UM3 (80-100); MEAN PLATELET VOLUME 10.3 UM3 (9.4-12.4); MONOCYTES # (AUTO) 0.7 T/MM3 (0-0.8); MONOCYTES % (AUTO) 10.9 % (0-9.0); NEUTROPHILS #(AUTO)-ABSOLUTE 3.3 T/MM3 (1.8-7.7); RED BLOOD COUNT 4.35 M/MM3 (4.50-5.90); WBC - WHITE BLOOD COUNT 6.4 T/MM3 (4.5-11.0)
[2016-11-26 05:01] LABS: ALBUMIN/GLOBULIN RATIO 1.5 RATIO (1.1-2.2); ALKALINE PHOSPHATASE 63 U/L (38-126); ALT (SGPT) 41 U/L (21-72); ANION GAP 13 MEQ/L (5-15); AST (SGOT) 23 U/L (17-59); BUN/CREATININE RATIO 14 RATIO (6-26); C-REACTIVE PROTEIN 7.3 MG/L (0-9); CALCIUM 9.1 MG/DL (8.4-10.2); CHLORIDE 104 MEQ/L (98-107); CO2 - CARBON DIOXIDE 25 MEQ/L (22-30); CREATININE 2.2 MG/DL (0.8-1.5); GLOMERULAR FILTRATION RATE 31; GLUCOSE 104 MG/DL (75-110); MAGNESIUM 1.3 MG/DL (1.6-2.3); POTASSIUM 4.5 MEQ/L (3.6-5); SODIUM 142 MEQ/L (134-144); TOTAL PROTEIN 6.7 G/DL (6.3-8.2)
--- NOTE | 2016-11-26 05:26 | NUR ---
SUMMARY PT SLEPT WELL THIS SHIFT. ALERT AND ORIENTED. DENIED ANY PAIN. PT AMBULATE TO THE BATHROOM WITH NO ASSIST OR DEVICE. GAIT STEADY. 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 VITAL SIGNS STABLE. ON ROOM AIR ALL NIGHT. USED THE URINAL SEVERAL TIMES THIS SHIFT. PT WAS UNABLE TO VOID ON ADMISSION. HE LATER VOIDED 200ML. BLADDER SCAN WAS DONE. PT WAS HOLDING 476 ML. ENCOURAGED TO INCREASE THE ORAL FLUID INTAKE. 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
[2016-11-26 05:33] LABS: PHOSPHORUS 5.1 MG/DL (2.5-4.5)
[2016-11-26] MEDS: NORMAL SALINE 1,000 ML IV SCH ×3 (05:47→15:05)
[2016-11-26] MEDS: OMEPRAZOLE 20 MG CAPSULE PO SCH (05:52)
[2016-11-26 08:00] VITALS: BP_SYST 125; BP_SYST 97; BP_DIAS 65; BP_DIAS 75; BP_DIAS 77; PULSE 74; PULSE 77; PULSE 89; RESP 22; TEMP 96.7; O2SAT 95
[2016-11-26] MEDS: FLUOXETINE 20 MG CAPSULE PO SCH (08:48)
[2016-11-26] MEDS: CLOPIDOGREL 75 MG TABLET PO SCH (08:48)
[2016-11-26] MEDS: GABAPENTIN 300 MG CAPSULE PO SCH ×3 (08:48→21:00)
[2016-11-26] MEDS: CEFTRIAXONE 1 G in NORMAL SALINE 100 ML IV SCH (08:48)
--- NOTE | 2016-11-26 10:00 | DI ---
Indication: ITS.REASON: acute renal failure/BPH PROCEDURE: US RENAL: Encounter: Initial Comparison: None Technique: Grayscale and color Doppler sonographic imaging of both kidneys was performed. FINDINGS: Both kidneys are present with normal cortical thickness and echogenicity. No evidence for collecting system dilatation, contour deforming mass, nephrolithiasis, or abnormal perinephric fluid collection. The right kidney measures 12.7 cm in length, and the left kidney measures 12 cm in length. IMPRESSION: Normal renal sonogram. .
--- NOTE | 2016-11-26 13:06 | NUR ---
BGM 1100 PP BGM 112 after breakfast. Pt called 1145 c/o being shaky. Retook BGM 70 after starting lunch. Gave extra juice. Pt stating feeling a little better after eating lunch.
--- NOTE | 2016-11-26 13:34 | NUR ---
BGM 136 after finishing lunch and an extra 2 OJ.
--- NOTE | 2016-11-26 14:10 | NUR ---
CM CM IN TO VISIT PT AND FAMILY. CM EXPLAINED ROLE AND PROVIDED CONTACT INFORMATION. PT AND DENY HOME NEEDS AND ARE AWARE TO CALL CM SHOULD NEEDS ARISE.
[2016-11-26 15:10] VITALS: BP 125/75; PULSE 68; RESP 18; TEMP 96.9; O2SAT 97
--- NOTE | 2016-11-26 15:54 | PNPDOC ---
Subjective Date DATE: 11/26/16 TIME: 15:30 Subjective Mr. Damon reports that he feels significantly better today. He can stand without dizziness, urine is no longer dark nor is foul-smelling. He denies dysuria. He reports no fever or chills overnight. His appetite is good. Continues to have a smoker's cough but nothing out of the ordinary and he denied dyspnea. He denied nausea, vomiting, or diarrhea. Urine output has improved significantly overnight. He reports taking indomethacin 3 times daily chronically for pain control. Objective Vital Signs Vital signs Vital Signs Date Time Temp Pulse Resp B/P Pulse Ox O2 Delivery O2 Flow Rate FiO2 11/26/16 15:10 96.9 68 18 125/75 97 Room Air 11/25/16 20:52 21 I/O [id number] EXAM General-NAD, alert, cooperative, fluent speech; minimal orthostatic hypotension recorded (less than 10 mm) HEENT-conjugate gaze, conjunctiva clear, sclera anicteric, neck supple without adenopathy Lungs-respirations nonlabored, good airflow, breath sounds clear Cardiac-regular rhythm, S1-S2 Abd-soft, nontender, bowel sounds present, obese Ext-without edema Neuro-moving all extremities well Psych-calm, euthymic Height (Feet): 6 Height (Inches): 1.00 Weight (Kilograms): 125.400 Laboratory Laboratory Laboratory Tests 11/25/16 17:21 11/25/16 21:03 11/26/16 04:34 Laboratory Tests 11/25/16 17:21 11/26/16 04:34 Liver enzymes unremarkable, CRP 7.8, magnesium 1.3, phosphorus 5.1 Lactic acid 1.3, procalcitonin 0.15 Urinalysis with us to protein, 5-10 WBCs, 20-50 epithelial cells, urine creatinine 229.5, urine sodium 67, fractional excretion sodium 0.72% EKG EKG reviewed by myself revealing sinus rhythm, no acute changes. Telemetry- sinus rhythm also Microbiology Microbiology Microbiology Date/Time Source Procedure Growth Status 11/25/16 19:57 Peripheral/Iv Start Blood Culture - Preliminary CULTURE INITIATED - RESULTS PENDING Resulted 11/25/16 19:53 Peripheral/Iv Start Blood Culture - Preliminary CULTURE INITIATED - RESULTS PENDING Resulted Radiology Sonogram reviewed by myself-no evidence of obstruction, kidneys normal in size per radiology report-12.7 and 12.0 cm. Sepsis Diagnostic Criteria Sepsis SIRS Criteria: Pulse >= 90 beats/min Severe Sepsis Creatinine >2.0mg/dL Assessment & Plan Assessment Syncope Acute renal failure-FeNa 0.72% Diabetes mellitus, type II-A1c 6.1-11/05/16; with nephropathy (proteinuria) and neuropathy Hypomagnesemia Hyperphosphatemia CAD HTN, history Chronic pain/DJD/rotator cuff BPH Obstructive sleep apnea - Plan/Intensity of Service Significant clinical improvement with hydration. Continue hydration. Fractional excretion low. Multiple medications remain on hold due to nephrotoxic effect. Renal sonogram without evidence of obstruction. Urine eosinophils pending. Blood cultures pending although preliminary data does not suggest sepsis as cause of acute renal failure. Continue antibiotics pending blood culture reports. Replace magnesium IV. Patient reports use of indomethacin due to cost after interruption in insurance- has used Celebrex previously which is covered by current insurance. Blood sugars well controlled currently off metformin. Blood pressure low normal off lisinopril, continue to monitor. Tolerated BiPAP overnight, will need outpatient sleep study in the near future as new equipment needed. Renal sonogram reviewed by myself, telemetry reviewed by myself, EKG reviewed by myself. Laboratory data reviewed, discussed with and nursing. DVT Prophylaxis: SCD'S Code Status Full Code Hospital Course Summary Disclaimer The hospital course summary below is not to be considered part of the above Progress Note. Hospital Course Summary 11/25/16-admission Patient presents with generalized weakness/dizziness after a syncopal event. Urine output is down and creatinine is significantly elevated from baseline of 0.9 earlier this year. He is on multiple medications which can be nephrotoxic including metformin, indomethacin, lisinopril, and potentially omeprazole. The initial 3 will be held but PPI continued at present. CPK will be obtained tonight, renal sonogram ordered, urine sodium/creatinine pending although BUN/creatinine ratio more indicative of ATN than dehydration. Bladder scan pending-may require Alfaro catheter. Need UA/urine culture to exclude infection. Check lactic acid/procalcitonin/blood cultures. Will empirically treat with Rocephin after cultures obtained. Continue hydration. Monitor blood sugars, corrective insulin as needed. Orthostatic vital signs. Critical impairment in renal function. 11/26/16 Significant clinical improvement with hydration. Continue hydration. Fractional excretion low. Multiple medications remain on hold due to nephrotoxic effect. Renal sonogram without evidence of obstruction. Blood cultures pending although preliminary data does not suggest sepsis as cause of acute renal failure. Continue antibiotics pending blood culture reports. Replace magnesium IV. Patient reports use of indomethacin due to cost after interruption in insurance- has used Celebrex previously which is covered by current insurance. Blood sugars well controlled currently off metformin. Blood pressure low normal off lisinopril, continue to monitor. Tolerated BiPAP overnight, will need outpatient sleep study in the near future as new equipment needed. RYDER UNDERWOOD MD November 26, 2016 15:33
[2016-11-26 15:56] LABS: ANION GAP 12 MEQ/L (5-15); BUN/CREATININE RATIO 15 RATIO (6-26); CALCIUM 9.5 MG/DL (8.4-10.2); CHLORIDE 104 MEQ/L (98-107); CO2 - CARBON DIOXIDE 26 MEQ/L (22-30); CREATININE 1.3 MG/DL (0.8-1.5); GLOMERULAR FILTRATION RATE 57; GLUCOSE 129 MG/DL (75-110); POTASSIUM 5.1 MEQ/L (3.6-5); SODIUM 142 MEQ/L (134-144)
[2016-11-26] MEDS: MAGNESIUM SULFATE 1 G in D5W 100 ML IV SCH ×2 (16:06→17:08)
--- NOTE | 2016-11-26 19:40 | NUR ---
Status Pt A?O x3, V/S stable on RA. Pt ambulating well up at miladys in room, denies dizziness or SOA. Eating and drinking well, no N/V. Pt denies pain and no PRN meds given. After lunch time shakiness and BGM back up, pt stated he has felt better. Urine output very good for shift, lg BM this afternoon. IVF NS decreased from 125 to 75/hr.
[2016-11-26] MEDS ORDERED: SIMVASTATIN 20 MG TABLET PO SCH (22:00)
--- NOTE | 2016-11-26 22:00 | NUR ---
activity up in room with good balance, denies light headedness or dizziness as up
[2016-11-27 00:37] VITALS: BP 136/72; PULSE 75; RESP 18; TEMP 97.4; O2SAT 96
[2016-11-27 05:16] LABS: ALBUMIN 4.4 G/DL (3.5-5.0); ANION GAP 13 MEQ/L (5-15); BUN/CREATININE RATIO 16 RATIO (6-26); CHLORIDE 103 MEQ/L (98-107); CO2 - CARBON DIOXIDE 27 MEQ/L (22-30); CREATININE 1.1 MG/DL (0.8-1.5); GLOMERULAR FILTRATION RATE 69; GLUCOSE 116 MG/DL (75-110); MAGNESIUM 1.5 MG/DL (1.6-2.3); PHOSPHORUS 3.6 MG/DL (2.5-4.5); POTASSIUM 4.9 MEQ/L (3.6-5); SODIUM 143 MEQ/L (134-144)
[2016-11-27] MEDS: OMEPRAZOLE 20 MG CAPSULE PO SCH (05:27)
[2016-11-27] MEDS: NORMAL SALINE 1,000 ML IV SCH ×2 (05:29→08:56)
--- NOTE | 2016-11-27 05:39 | NUR ---
rest sleeps for long intervals, resp. unlabored. Up to BR several times during night, gait steady. Denies dizziness as up.
[2016-11-27 07:59] VITALS: BP 116/77; PULSE 80; RESP 18; TEMP 97.4; O2SAT 98
[2016-11-27 08:00] VITALS: PULSE 80; RESP 16
--- NOTE | 2016-11-27 08:00 | NUR ---
RECEIVED REPORT PATIENT IS ALERT AND ORIENTED. DENIES PAIN OR ANY OTHER CONCERNS AT THIS TIME. PATIENT IS CURRENTLY ON NS AT 75ML/HR. RA. BOLTON. TELE SR.
[2016-11-27] MEDS: CLOPIDOGREL 75 MG TABLET PO SCH (08:55)
[2016-11-27] MEDS: GABAPENTIN 300 MG CAPSULE PO SCH (08:55)
[2016-11-27] MEDS: FLUOXETINE 20 MG CAPSULE PO SCH (08:55)
[2016-11-27] MEDS: CEFTRIAXONE 1 G in NORMAL SALINE 100 ML IV SCH (08:56)
[2016-11-27 09:00] VITALS: BP_SYST 140; BP_SYST 144; BP_SYST 153; BP_DIAS 60; BP_DIAS 75; BP_DIAS 82; PULSE 82
[2016-11-27] MEDS ORDERED: MAGNESIUM OXIDE 400 MG TABLET PO ONE (09:15)
--- NOTE | 2016-11-27 10:14 | PNPDOC ---
Subjective Date DATE: 11/27/16 TIME: 09:58 Subjective F/U: LION Doing well today. Able to be up and ambulatory without problems - not feeling lightheaded, dizzy, or unsteady on his feet. Eating well. No n/v. Breathing well. Urinating well. No f/c. No chest pressure or pain. Objective Vital Signs Vital signs Vital Signs Date Time Temp Pulse Resp B/P Pulse Ox O2 Delivery O2 Flow Rate FiO2 11/27/16 07:59 97.4 80 18 116/77 98 Room Air 11/25/16 20:52 21 Height (Feet): 6 Height (Inches): 1.00 Weight (Kilograms): 125.500 General General Appearance: Alert, Obese, Orientated x 3, Well Nourished, Well Developed, Cooperative, No Acute Distress, Looks Stated Age Eyes (Brief) Eyes: FOUND: EOMI, PERRL, NOT FOUND: scleral icterus ENMT (Brief) ENMT: FOUND: hearing intact, mucosa moist Neck (Brief) Neck: FOUND: midline, NOT FOUND: nuchal rigidity, spasm Respiratory (Brief) Respiratory: FOUND: clear all barraza, equal bilaterally, NOT FOUND: rales, wheezes Cardiovascular (Brief) Cardiac: FOUND: regular rate, regular rhythm, NOT FOUND: pedal edema Abdomen (Brief) Abdominal: FOUND: BS normo active x4, soft, NOT FOUND: distended, tender Extremities (Brief) Extremity : Side: Bilateral Extremity: leg Extremity Finding: NOT FOUND: edema Musculoskeletal (Brief) Musculoskeletal: FOUND: extremities move equally, NOT FOUND: deformity, spasm Integumentary (Brief) Integumentary: FOUND: dry, warm Neurologic (Brief) Neurological: FOUND: cranial 2-12 intact, motor (Intact ) Psychiatric (Brief) Psychiatric: FOUND: alert, attentive, normal affect, oriented Laboratory Laboratory Laboratory Tests 11/25/16 17:21 11/25/16 21:03 11/26/16 04:34 11/26/16 15:34 11/27/16 04:28 Laboratory Tests 11/25/16 17:21 11/26/16 04:34 Microbiology Microbiology Microbiology Date/Time Source Procedure Growth Status 11/25/16 19:57 Peripheral/Iv Start Blood Culture - Preliminary NO GROWTH AFTER 24 HOURS Resulted 11/25/16 19:53 Peripheral/Iv Start Blood Culture - Preliminary NO GROWTH AFTER 24 HOURS Resulted Sepsis Diagnostic Criteria Sepsis SIRS Criteria: Pulse >= 90 beats/min Severe Sepsis Creatinine >2.0mg/dL Assessment & Plan Assessment Acute renal failure-FeNa 0.72% - resolved. Stage II CKD. Syncope Diabetes mellitus, type II-A1c 6.1-11/05/16; with nephropathy (proteinuria) and neuropathy Hypomagnesemia Hyperphosphatemia - resolved. CAD HTN, history Hyperlipidemia Chronic pain/DJD/rotator cuff BPH Obstructive sleep apnea Depression - mood stable Obesity with BMI 36.5 - Plan/Intensity of Service Oral Magnesium 400mg x1. RT for tobacco cessation. Would continue to hold lisinopril - monitor BP and creatinine in outpatient setting If lisinopril restarted, would recommend lower dose (10mg) and repeating BMP 1 week after starting. Continue to hold indomethacin - possible return to Celebrex use at discretion of PCP. May d/c IVF as renal function at baseline and taking oral well. Will d/c to home - condition stable. F/U with Dr Martinez in 1 week - recheck BMP at that time. See orders for details. DVT Prophylaxis: SCD'S Code Status Full Code Hospital Course Summary Disclaimer The hospital course summary below is not to be considered part of the above Progress Note. Hospital Course Summary 11/25/16-admission Patient presents with generalized weakness/dizziness after a syncopal event. Urine output is down and creatinine is significantly elevated from baseline of 0.9 earlier this year. He is on multiple medications which can be nephrotoxic including metformin, indomethacin, lisinopril, and potentially omeprazole. The initial 3 will be held but PPI continued at present. CPK will be obtained tonight, renal sonogram ordered, urine sodium/creatinine pending although BUN/creatinine ratio more indicative of ATN than dehydration. Bladder scan pending-may require Alfaro catheter. Need UA/urine culture to exclude infection. Check lactic acid/procalcitonin/blood cultures. Will empirically treat with Rocephin after cultures obtained. Continue hydration. Monitor blood sugars, corrective insulin as needed. Orthostatic vital signs. Critical impairment in renal function. 11/26/16 Significant clinical improvement with hydration. Continue hydration. Fractional excretion low. Multiple medications remain on hold due to nephrotoxic effect. Renal sonogram without evidence of obstruction. Blood cultures pending although preliminary data does not suggest sepsis as cause of acute renal failure. Continue antibiotics pending blood culture reports. Replace magnesium IV. Patient reports use of indomethacin due to cost after interruption in insurance- has used Celebrex previously which is covered by current insurance. Blood sugars well controlled currently off metformin. Blood pressure low normal off lisinopril, continue to monitor. Tolerated BiPAP overnight, will need outpatient sleep study in the near future as new equipment needed. 11/27 Doing well today. Able to be up and ambulatory without problems - not feeling lightheaded, dizzy, or unsteady on his feet. Eating well. No n/v. Breathing well. Urinating well. No f/c. No chest pressure or pain. Creatinine improved to 1.1. Blood pressure stable. Magnesium 1.5. Oral Magnesium 400mg x1. RT for tobacco cessation. Would continue to hold lisinopril - monitor BP and creatinine in outpatient setting If lisinopril restarted, would recommend lower dose (10mg) and repeating BMP 1 week after starting. Continue to hold indomethacin - possible return to Celebrex use at discretion of PCP. May d/c IVF as renal function at baseline and taking oral well. Will d/c to home - condition stable. F/U with Dr Martinez in 1 week - recheck BMP at that time. See orders for details. FOREIGN FONSECA MD November 27, 2016 10:05
--- NOTE | 2016-11-27 11:40 | NUR ---
DISCHARGED PATIENT DISCHARGE AND MEDICATIONS INSTRUCTIONS ARE GIVEN. SPOUSE WAITING FOR THE PATIENT AT THE CAR AT THE FRONT ENTRANCE. NO QUESTIONS ASKED AT THIS TIME. PATIENT IS WALKED TO THE FRONT ENTRANCE. ALL BELONGING WITH PATIENT.
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
== END 2016-11-27 11:40 | disposition home or self-care (01) | DRG 684 ==
LOC: ED 16:23 → OBSVTOIN 17:56 → MED 17:56 → INTOOBSV 17:56 → EDHOLD 17:56 → OBSVTOIN 19:02
PROVIDERS: ADMIT Internal Medicine; ATTEND Hospitalist
DX: N17.9 Acute kidney failure, unspecified (principal); R55 Syncope and collapse; E11.22 Type 2 diabetes mellitus with diabetic chronic kidney disease; E11.40 Type 2 diabetes mellitus with diabetic neuropathy, unspecified; I12.9 Hypertensive chronic kidney disease with stage 1 through stage 4 chronic kidney disease, or unspecified chronic kidney disease; N18.2 Chronic kidney disease, stage 2 (mild); I25.10 Atherosclerotic heart disease of native coronary artery without angina pectoris; E78.2 Mixed hyperlipidemia; G89.29 Other chronic pain; F17.200 Nicotine dependence, unspecified, uncomplicated; E83.42 Hypomagnesemia; E83.39 Other disorders of phosphorus metabolism; N40.0 Benign prostatic hyperplasia without lower urinary tract symptoms; G47.33 Obstructive sleep apnea (adult) (pediatric); F32.9 Major depressive disorder, single episode, unspecified; E66.9 Obesity, unspecified; K21.9 Gastro-esophageal reflux disease without esophagitis; K58.9 Irritable bowel syndrome, unspecified; M19.91 Primary osteoarthritis, unspecified site; Z95.5 Presence of coronary angioplasty implant and graft; Z68.36 Body mass index [BMI] 36.0-36.9, adult
CPT/HCPCS: 36415; 80048; 80053; 80069; 81001; 82550; 82570; 82948; 83605; 83735; 84100; 84145; 84300; 84484; 85025; 86140; 87040; 87205; 93005; 94002; 99407